=== PATIENT | female | born 1935 | race Caucasian/White ===

== ENCOUNTER 2017-08-18 15:55 | Emergency (ER) | payer OTHER ==
[~2017-08-18 15:55] MED LIST: ACET-1256 PO; ALLO300T2 PO; CPR500 PO; DILT120C9 PO; ENAL1TAB31 PO; FENO48TA9 PO; MEMA10TA PO; NRN/300 PO; SIMV10TA2 PO
[2017-08-18 16:12] VITALS: TEMP 36.6; Ht 160 cm
--- NOTE | 2017-08-18 16:54 | DIAGNOSTIC IMAGING REPORT ---
HEAD WITHOUT CONTRAST (CT) CT DOSE: 601.98 mGy.cm HISTORY: Trauma. Mental status change. fall TECHNIQUE: Multiaxial CT images of the head were performed without the use of intravenous contrast. A dose lowering technique was utilized adhering to the principles of ALARA. Comparison: 03/05/2016 Findings: The paranasal sinuses and mastoid air cells are clear. The calvarium and skull base are intact. The ventricles and sulci are within normal limits. There is no mass, hematoma, midline shift, or acute infarct. Impression: No acute intracranial abnormality. The above report was generated using voice recognition software. It may contain grammatical, syntax or spelling errors. Electronically signed by: Canelo Laura M.D. 08/18/2017 4:53 PM Dictated Date/Time: 08/18/2017 4:52 PM
--- NOTE | 2017-08-18 18:31 | EMERGENCY ROOM VISIT NOTE ---
History Report prepared by Kristy: Cyrus Dillon Under the Supervision of: Dr. Reginald Yee D.O. First contact with patient: 16:18 Chief Complaint: FALL Stated Complaint: FELL HIT HEAD ABRASIONS REALLY SORE R ARM History of Present Illness The patient is an 81 year old female who presents to the Emergency Room with concerns from her family of unusual/worsening confusion and lethargy. The patient's family note that the patient states that she "rolled out of bed while sleeping" at 0230 yesterday morning, 38 hours ago. The family note that the patient has been unusually confused since the fall. She has also been sleeping all day today per the daughter. The daughter lives with the patient and notes that she did not call for help until 0730. The patient did hit her head during the fall. Source of History: patient, family Onset: 38 hours ago Position: head Quality: other (confusion) Timing: worsening Associated Symptoms: + fatigue Review of Systems See HPI for pertinent positives & negatives. A total of 10 systems reviewed and were otherwise negative. Past Medical & Surgical Medical Problems: (1) Anemia of chronic renal failure (2) Benign hypertension (3) Cataract (4) Chronic kidney disease stage 4 (5) Chronic osteoarthritis (6) Diabetes mellitus type 2 (7) Ectopic (8) Fall (9) Fistula (10) Gout (11) HTN (hypertension) (12) Left leg pain (13) UTI (urinary tract infection) Surgical Problems: (1) History of cataract surgery (2) History of hysterectomy (3) Hx of tonsillectomy (4) Status post total knee replacement, left Family History Cancer Heart disease Hypertension Social History Smoking Status: Never Smoker Alcohol Use: none Drug Use: none Marital Status: Housing Status: lives with family Occupation Status: retired Current/Historical Medications Scheduled Allopurinol (Zyloprim), 300 MG PO DAILY Ciprofloxacin (Ciprofloxacin HCl), 500 MG PO BID Diltiazem Hcl (Diltiazem Hcl Er), 120 MG PO BID Enalapril Maleate (Vasotec), 20 MG PO BID Fenofibrate (Tricor), 48 MG PO DAILY Gabapentin (Neurontin), 300 MG PO BID Memantine Hcl (Namenda), 10 MG PO BID Simvastatin (Zocor), 10 MG PO QPM Scheduled PRN Acetaminophen (Tylenol), 1,000 MG PO Q8 PRN for Pain Allergies Coded Allergies: Morphine (Unverified Allergy, Mild, Vomiting, 03/05/16) Atorvastatin (Verified Allergy, Unknown, SICK TO STOMACH, 03/05/16) Glucosamine (Verified Allergy, Unknown, JOINTS GOT WORSE, 03/05/16) Sulfa Antibiotics (Unverified Adverse Reaction, Severe, dizzy, shaky, "mind was completely off", 03/05/16) Physical Exam Vital Signs Date Time Temp Pulse Resp B/P (MAP) Pulse Ox O2 Delivery O2 Flow Rate FiO2 08/18/17 17:47 78 18 143/79 98 Room Air 08/18/17 16:12 36.6 87 16 127/75 98 Room Air Physical Exam CONSTITUTIONAL/VITAL SIGNS: Reviewed / noted above. GENERAL: Non-toxic in appearance. INTEGUMENTARY: Warm, dry, and [place]. HEAD: There is light ecchymosis noted to the right forehead. EYES: without scleral icterus or trauma. ENT/OROPHARYNX: clear and moist. LYMPHADENOPATHY/NECK: Is supple without lymphadenopathy or meningismus. RESPIRATORY: Lungs clear and equal. CARDIOVASCULAR: Regular rate and rhythm. GI/ABDOMEN: Soft and nontender. No organomegaly or pulsatile mass. No rebound or guarding. Normal bowel sounds. EXTREMITIES: Warm and well perfused. There is an abrasion to the right medial knee. BACK: No CVA tenderness. NEUROLOGICAL: Intact without focal deficits. PSYCHIATRIC: normal affect. MUSCULOSKELETAL: Normally developed with good muscle tone. Medical Decision & Procedures ER Provider Diagnostic Interpretation: Radiology results as stated below per my review and radiologist interpretation: HEAD WITHOUT CONTRAST (CT) CT DOSE: 601.98 mGy.cm HISTORY: Trauma. Mental status change. fall TECHNIQUE: Multiaxial CT images of the head were performed without the use of intravenous contrast. A dose lowering technique was utilized adhering to the principles of ALARA. Comparison: 03/05/2016 Findings: The paranasal sinuses and mastoid air cells are clear. The calvarium and skull base are intact. The ventricles and sulci are within normal limits. There is no mass, hematoma, midline shift, or acute infarct. Impression: No acute intracranial abnormality. The above report was generated using voice recognition software. It may contain grammatical, syntax or spelling errors. Electronically signed by: Canelo Laura M.D. 08/18/2017 4:53 PM Dictated Date/Time: 08/18/2017 4:52 PM ED Course 1619: Previous medical records were reviewed. The patient was evaluated in room C1B. A complete history and physical examination was performed. Medical Decision Differentials include: Close head injury, intracranial bleed, facial trauma, cervical spine trauma, chest and thoracic trauma, abdominal and intra-abdominal trauma, spine neurologic trauma, and extremity trauma. This is an 81-year-old female who presents to the ED after a fall. The patient' s family was concerned about a head injury. Details listed above. The patient' s exam reveals some ecchymosis of the forehead and other areas of the extremities. She has a CT scan that was negative for acute disease. The patient was told the results. She was discharged Impression Primary Impression: Fall Additional Impression: Contusion of multiple sites Scribe Attestation The scribe's documentation has been prepared under my direction and personally reviewed by me in its entirety. I confirm that the note above accurately reflects all work, treatment, procedures, and medical decision making performed by me. Departure Information Referrals Summer Mckeon M.D. (PCP) Patient Instructions [facility] Additional Instructions Follow-up with your doctor for further care and evaluation in 1-2 days as needed. Return to the emergency department for worsening or new symptoms or any concerns. You have been examined and treated today on an emergency basis only. This is not a substitute for, or an effort to provide, complete comprehensive medical care. It is impossible to recognize and treat all injuries or illnesses in a single emergency department visit. It is therefore important that you follow up closely with your doctor. Call as soon as possible for an appointment. Problem Qualifiers
[2017-08-18 18:57] VITALS: BP 138/77; PULSE 77; O2SAT 99
== END 2017-08-18 18:58 | disposition home or self-care (01) ==
LOC: C.EDB 15:56 → C.EDC 18:58
DX: T14.8XXA Other injury of unspecified body region, initial encounter (principal); W06.XXXA Fall from bed, initial encounter; N18.4 Chronic kidney disease, stage 4 (severe); D63.1 Anemia in chronic kidney disease; I12.9 Hypertensive chronic kidney disease with stage 1 through stage 4 chronic kidney disease, or unspecified chronic kidney disease; Z98.49 Cataract extraction status, unspecified eye; E11.9 Type 2 diabetes mellitus without complications; M19.90 Unspecified osteoarthritis, unspecified site; M10.9 Gout, unspecified; Z87.440 Personal history of urinary (tract) infections; Z90.710 Acquired absence of both cervix and uterus; Z79.899 Other long term (current) drug therapy; Z96.652 Presence of left artificial knee joint; Z80.9 Family history of malignant neoplasm, unspecified; Z82.49 Family history of ischemic heart disease and other diseases of the circulatory system

== ENCOUNTER 2023-02-22 11:16 | Inpatient (IN) ==
--- NOTE | 2023-02-22 11:46 | Emergency Department Note ---
Impression & Plan Acute confusion, Fall, Fatigue, Acute UTI (urinary tract infection), LAURI (acute kidney injury), Anemia ED Provider Note ED Provider Note NAME: GIN CHU AGE:87 SEX: Female : 1935 ARRIVES VIA: EMS INFORMANT: Patient, family ED PROVIDER(s): Bhakti Shrestha DO CHIEF COMPLAINT: Fall, confusion HPI: This is an 87-year-old female presents emergency department via EMS after being unable to walk today following a fall last night and subsequent right foot injury. Patient lives with family who helps to care for her. Patient does have a history of Alzheimer's disease and family helps to provide history. Family states over the last 2 to 3 days she has had increased fatigue and confusion of unknown reason. They deny any recent change in medications or illness. Family states that last night she slid off the end of the bed onto the floor and landed on her butt but was able to be helped back up and seemed well and uninjured. Then late last night she fell again between her bed and the door coming back from the restroom. Family member states they heard her fall but did not witness it. They called 911 for assistance getting the patient back up and she seemed well and did not wish to go to the hospital so she stayed home. Family member states that this morning she could not get out of bed due to pain in the right foot and she now had obvious swelling and bruising there. They were concern for injury and so called EMS to bring her in for additional evaluation. Patient is not on any anticoagulation or antiplatelet medication. PAST MEDICAL HISTORY:See Below PAST SURGICAL HISTORY:See Below FAMILY HISTORY:See Below SOCIAL HISTORY:See Below HOME MEDICATIONS:See Below ALLERGIES:See Below VITALS:See Below PHYSICAL EXAMINATION: GENERAL: alert, well appearing, well nourished, no distress, non-toxic EYE EXAM: normal conjunctiva, PERRL and EOM's grossly intact OROPHARYNX: no exudate, no erythema, lips, buccal mucosa, and tongue normal and mucous membranes are moist NECK: supple, no nuchal rigidity, no adenopathy, non-tender LUNGS: Clear to auscultation. Normal chest wall mechanics, no w/r/r HEART: no murmurs, S1 normal and S2 normal ABDOMEN: abdomen soft, non-tender, normo-active bowel sounds, no masses, no rebound or guarding. BACK: Back is symmetrical on inspection and there is no deformity, no midline tenderness, no CVA tenderness. SKIN: no rashes, petechiae, orbruising UPPER EXTREMITIES: upper extremities are grossly normal. FROM, nml pulses b/l. LOWER EXTREMITIES: No pitting edema. FROM, nml pulses b/l. Obvious edema and evolving ecchymosis noted to the dorsal aspect of the right foot, pain with palpation along the right inferior tibia anteriorly, no obvious deformity, small area evolving ecchymosis noted just superior to the patella at the right knee, no joint effusion, chronic appearing skin changes noted to the right pretibial region additionally NEURO EXAM: Pleasantly confused, cranial nerves II-XII grossly intact, normal speech, no facial droop,nogross weakness of arms, no gross weakness of legs. Gross sensation intact. No ataxia. Vital Signs: reviewed and remarkable Differential Diagnosis: cva, ich, lauri, uti, electrolyte abnormality, dysrhythmia, syncope, pna, fracture, contusion, hypoglycemia, as well as others were considered MEDICAL DECISION MAKING: This is an 87 yo female brought in by EMS as patient unable to ambulate following a fall last night. Patient with increased fatigue and confusion in recent days. She was afebrile and VS stable. Labs drawn and sent, IV established, EKG and CXR performed and interpreted at bedside, and patient placed on telemetry. EKG showed new a.fib which patient has no prior hx of. She was cautiously hydrated as she appeared clinically dehydrated. Rate controlled without additional medication. Given concern for confusion and inability to walk, case was discussed with the hospitalist team for additional evaluation and mgmt. UA pending at that time. UA eventually revealed infection, IV rocephin added. Consultation(s): 1415: Discussed with Melida Pace hospitalist team, for additional evaluation and management ER Treatment Provided: See below Diagnostics Interpreted By Me: -ECG: A-fib at 99, leftward axis, normal QRS and prolonged QTc, nonspecific ST/T wave changes -Cardiac Monitoring: An order was placed for continuous cardiac monitoring. The monitor shows a rate of 77 with a.fib rhythm. -Laboratory studies: As stated above and show below. -Imaging studies: X-ray Chest: A single view study of the chest was reviewed and was negative for cardiomegaly, focal infiltrate, effusion, pulmonary edema, or wide mediastinum. xr tib/fib: no obvious fx/dislocation xr foot: no fx/dislocation Triage Nursing Note Reviewed Prior/Outside Records Reviewed - prior [facility] office visit reviewed Past Med/Surg History Medical History Depression RLS (restless legs syndrome) Alzheimer's dementia Dyslipidemia CKD (chronic kidney disease), stage III Diabetes mellitus type 2, diet-controlled HTN (hypertension) Surgical History History of hysterectomy (Unknown) History of cataract surgery Status post total knee replacement, left Hx of tonsillectomy Family History Other Heart disease Stroke Social History Smoking Status: Never smoker Do You Dip or Chew Tobacco: No; Hx Alcohol Use: No Hx Substance Use: No Preferred Language: Haitian Communication Ability: Impaired Communication Ability Comment: pt confused Beliefs That Will Affect Care: None Current Living Situation: Family Current Living Situation Comment: lives with daughter Other Information That Helps Us Care for You: No Feels Safe at Home: Yes Safety Concerns: Feels Safe At This Time Assistive Devices: Denture - Upper, Glasses, Hearing Aid - Bilateral and Walker Assistive Devices Comment: glasses and hearing aids not here Allergies Allergies Allergy/AdvReac Type Severity Reaction Status Date / Time morphine Allergy Mild Vomiting Unverified 03/05/16 15:06 atorvastatin Allergy Unknown SICK TO Verified 03/05/16 15:06 STOMACH glucosamine Allergy Unknown JOINTS GOT Verified 03/05/16 15:06 WORSE Sulfa (Sulfonamide AdvReac Severe dizzy, Unverified 03/05/16 15:06 Antibiotics) shaky, "mind was completely off" Home Meds Home Medications Medication Instructions Recorded Confirmed allopurinol 100 mg tablet 100 mg PO QAM #0 tabs 07/05/12 02/22/23 acetaminophen 500 mg tablet 500 mg PO Q6H PRN PAIN/FEVER 02/22/23 02/22/23 cholecalciferol (vitamin D3) 25 25 mcg PO QAM 02/22/23 02/22/23 mcg (1,000 unit) chewable tablet (Vitamin D3) cyanocobalamin (vitamin B-12) 1,000 mcg PO QAM 02/22/23 02/22/23 1,000 mcg tablet (Vitamin B-12) diltiazem HCl 120 mg capsule,24 120 mg PO BID 02/22/23 02/22/23 hr,extended release enalapril maleate 20 mg tablet 20 mg PO BID 02/22/23 02/22/23 gabapentin 300 mg capsule 300 mg PO BID 02/22/23 02/22/23 memantine 10 mg tablet 10 mg PO BID 02/22/23 02/22/23 sertraline 25 mg tablet 25 mg PO HS 02/22/23 02/22/23 simvastatin 10 mg tablet 10 mg PO HS 02/22/23 02/22/23 Results & Data (ED) Vital Signs Vital Signs - 24 hr 02/22/23 11:33 02/22/23 11:43 02/22/23 13:42 Temperature 36.8 C Temperature Source Oral Pulse Rate 120 H 91 H Pulse Rate [Right Finger] 89 Respiratory Rate 22 22 Respiratory Effort / Characteristics Spontaneous Non-Labored Spontaneous Respiratory Depth Normal Normal Blood Pressure 173/110 H Blood Pressure [Right Arm] 139/75 Blood Pressure Mean 131 Blood Pressure Mean [Right Arm] 96 Pulse Oximetry 92 94 Oxygen Delivery Method Room Air Room Air Sepsis Recent Fever Within 48 Hours No Sepsis New/Unexplained Change in Mental Status N/A Sepsis Action Taken by Nursing No Action Required Laboratory Data 02/22/23 11:37 02/22/23 11:37 Lab Results 02/22/23 02/22/23 Range/Units 11:37 11:57 WBC 8.79 (4.8-10.8) K/ul RBC 3.44 L (4.20-5.40) M/uL Hgb 10.9 L (12.0-16.0) g/dl Hct 33.9 L (37.0-47.0) % MCV 98.5 (80.0-100.0) fL MCH 31.7 (25.0-34.0) pg MCHC 32.2 (32.0-36.0) g/dL RDW Std Deviation 51.5 H (36.4-46.3) fL RDW Coeff of Kylee 14.2 (11.5-14.5) % Plt Count 287 (130-400) K/uL MPV 9.7 (9.4-12.4) fL Immature Gran % (Auto) 0.5 % Neut % (Auto) 66.6 % Lymph % (Auto) 20.5 % Hyde % (Auto) 9.7 % Eos % (Auto) 1.8 % Baso % (Auto) 0.9 % Neut # (Auto) 5.86 (1.40-6.50) K/uL Lymph # (Auto) 1.80 (1.20-3.40) K/uL Hyde # (Auto) 0.85 H (0.11-0.59) K/uL Eos # (Auto) 0.16 (0.00-0.50) K/uL Baso # (Auto) 0.08 (0.00-0.20) K/uL Immature Gran # (Auto) 0.04 (0.01-0.20) K/uL PT 11.4 (9.0-12.0) Seconds INR 1.0 (0.9-1.1) Sodium 144 (136-145) mmol/L Potassium 3.9 (3.5-5.1) mmol/L Chloride 111 H (98-107) mmol/L Carbon Dioxide 25 (21-32) mmol/L Anion Gap 8 (3-11) BUN 36 H (6-23) mg/dl Creatinine 1.39 H (0.6-1.2) mg/dl Est Cr Clr Drug Dosing 32.1 ml/min Est GFR ( Amer) 39.7 ml/min Est GFR (Non-Af Amer) 34.2 ml/min BUN/Creatinine Ratio 25.9 H (10-20) Glucose 147 H (70-99(Fasting)) mg/dl Calcium 9.2 (8.6-10.3) mg/dl Magnesium 2.1 (1.7-2.4) mg/dl Total Bilirubin 0.6 (0.2-1.0) mg/dl AST 30 (13-39) U/L ALT 15 (7-52) U/L Alkaline Phosphatase 84 (34-104) U/L Total Creatine Kinase 297 H (26-192) U/L Troponin I High Sens 55.8 H* (0-14) pg/ml Total Protein 6.8 (6.0-8.3) gm/dl Albumin 3.8 (3.4-5.0) gm/dl Globulin 3.0 (2.5-4.0) gm/dl Albumin/Globulin Ratio 1.3 (0.9-2) Lipase 30 (11-82) U/L TSH 1.284 (0.300-4.500) uIu/ml Adenovirus (PCR) Not Detected (NotDetected) B. pertussis DNA (PCR) Not Detected (NotDetected) B.parapertussis DNA PCR Not Detected (NotDetected) C. pneumoniae DNA (PCR) Not Detected (NotDetected) Coronavirus OC43 (PCR) Not Detected (NotDetected) Coronavirus HKU1 (PCR) Not Detected (NotDetected) Coronavirus 229E (PCR) Not Detected (NotDetected) SARS-CoV-2 (PCR) Not Detected (NotDetected) Coronavirus NL63 (PCR) Not Detected (NotDetected) Human Metapneumovir PCR Not Detected (NotDetected) Influenza Type A (PCR) Not Detected (NotDetected) Influenza Type B (PCR) Not Detected (NotDetected) M. pneumoniae (PCR) Not Detected (NotDetected) Parainfluenza 1 (PCR) Not Detected (NotDetected) Parainfluenza 2 (PCR) Not Detected (NotDetected) Parainfluenza 3 (PCR) Not Detected (NotDetected) Parainfluenza 4 (PCR) Not Detected (NotDetected) RSV (PCR) Not Detected (NotDetected) Entero/Rhino (PCR) Not Detected (NotDetected) Administered Medications Diltiazem HCl (Diltiazem Hcl 120 Mg Capcr) 120 mg PO BID [facility] Stop: 03/24/23 20:59 Last Admin: 02/22/23 20:42 Dose: 120 mg Documented By: CR Enalapril Maleate (Enalapril Maleate 10 Mg Tab) 20 mg PO BID [facility] Stop: 03/24/23 20:59 Last Admin: 02/22/23 20:43 Dose: 20 mg Documented By: CR Gabapentin (Gabapentin 300 Mg Cap) 300 mg PO BID [facility] Stop: 03/24/23 20:59 Last Admin: 02/22/23 20:43 Dose: 300 mg Documented By: CR Sodium Chloride (Nss) 1,000 mls @ 125 mls/hr IV .Q8H [facility]ON[facility] Stop: 03/24/23 11:44 Last Admin: 02/22/23 19:00 Dose: 125 mls/hr Documented By: Infusion: 02/22/23 19:00 Dose: Infused Documented By: Admin: 02/22/23 12:44 Dose: 125 mls/hr Documented By: LYLA Heparin Sodium/Dextrose (Heparin Sodium/Dextrose) 25,000 units in 500 mls @ 17 mls/hr IV .Q24H DEVONTE; Protocol Stop: 03/24/23 15:44 Last Titration: 02/22/23 19:15 Dose: 850 units/hr, 17 mls/hr Documented By: OMAR Co-signed By: KEATON Admin: 02/22/23 15:47 Dose: 850 units/hr, 17 mls/hr Documented By: LYLA Co-signed By: REAGAN Memantine (Memantine Hcl 10 Mg Tab) 10 mg PO BID [facility] Stop: 03/24/23 20:59 Last Admin: 02/22/23 20:43 Dose: 10 mg Documented By: OMAR Metoprolol Tartrate (Metoprolol Tartrate 25 Mg Tab) 12.5 mg PO BID [facility] Stop: 03/24/23 20:59 Last Admin: 02/22/23 20:43 Dose: 12.5 mg Documented By: OMAR Sertraline HCl (Sertraline Hcl 50 Mg Tablet) 25 mg PO [facility] Stop: 03/24/23 20:59 Last Admin: 02/22/23 20:43 Dose: 25 mg Documented By: OMAR Simvastatin (Simvastatin 10 Mg Tab) 10 mg PO [facility] Stop: 03/24/23 20:59 Last Admin: 02/22/23 20:43 Dose: 10 mg Documented By: OMAR Discontinued Medications Furosemide (Furosemide Inj 20 Mg/2 Ml Vial) 20 mg IV ONE ONE Stop: 02/22/23 16:43 Last Admin: 02/22/23 18:44 Dose: 20 mg Documented By: ROD Ceftriaxone Sodium (Rocephin) 2,000 mg in 50 mls @ 100 mls/hr IV NOW STA Stop: 02/22/23 16:50 Last Infusion: 02/22/23 17:13 Dose: Infused Documented By: Admin: 02/22/23 16:42 Dose: 100 mls/hr Documented By: QGV Metoprolol Tartrate (Metoprolol Tartrate 25 Mg Tab) 12.5 mg PO NOW STA Stop: 02/22/23 15:01 Last Admin: 02/22/23 15:47 Dose: 12.5 mg Documented By: JKB Imaging Data Radiologist's Impression: Cervical Spine CT 02/22/23 11:38 CT cervical spine wo con CLINICAL HISTORY: fall TECHNIQUE: Multidetector row helical CT of the cervical spine was performed without administration of intravenous contrast. Coronal and sagittal reformations were obtained. Automated dose lowering techniques and/or adjustment according to patient size were utilized for this exam. Comparison: None available at the time of this dictation. FINDINGS: No acute fractures or subluxations are identified. Degenerative changes are seen in the visualized spine. The alignment is normal. Moderate bilateral pleural effusions are seen. There is a groundglass opacity in the left upper lobe. There are a few scattered nodules measuring up to 3 mm. IMPRESSION: 1. Degenerative changes without evidence of acute bony injury. 2. Moderate bilateral pleural effusions. ACT 112: Negative or not required by law. Electronically signed by: Cristo Turner M.D. 02/22/2023 1:29 PM Chest X-Ray 02/22/23 11:38 XR chest 1V not portable CLINICAL HISTORY: sob TECHNIQUE: Single frontal radiograph of the chest was obtained. Comparison: Comparison is made to chest radiograph 03/28/2014 FINDINGS: No lines and tubes are seen. Calcified aortic knob is seen. The lungs are clear. No evidence of pleural effusion or pneumothorax. IMPRESSION: No acute chest disease. ACT 112: Negative or not required by law. Electronically signed by: Cristo Turner M.D. 02/22/2023 1:[address] 02/22/23 11:38 CT head/brain wo con CLINICAL HISTORY: fall Technique: Contiguous axial CT images of the head were acquired from the base of the skull to the vertex without intravenous contrast administration. Images were viewed in brain, subdural and bone windows. Automated dose lowering techniques and/or adjustment according to patient size were utilized for this exam. Comparison: Comparison is made to CT head 08/18/2017 Findings: Areas of decreased attenuation are present in the periventricular and subcortical white matter bilaterally consistent with small vessel ischemic disease. Generalized cerebral atrophy with commensurate enlargement of the ventricles, sulci, and cisterns is also present. There is no acute intracranial hemorrhage or evidence of acute territorial infarction. No shift of the midline structures, mass effect, or extra-axial abnormalities are shown. Atherosclerotic calcifications are present in the intracranial segments of the internal carotid arteries. Imaged portions of the paranasal sinuses and mastoid air cells are clear. The orbits appear normal. There are no acute fractures of the calvaria or scalp swelling. Impression: No acute intracranial hemorrhage, no evidence of acute territorial infarction or other acute intracranial disease process. ACT 112: Negative or not required by law. Electronically signed by: Cristo Turner M.D. 02/22/2023 1:22 PM Foot X-Ray 02/22/23 11:39 XR foot RT min 3V routine CLINICAL HISTORY: trauma TECHNIQUE: 3 views of the right foot were obtained. Comparison: None available at the time of this dictation. FINDINGS: No fractures are present. Degenerative changes are seen. Bones are demineralized. Vascular calcifications are noted. IMPRESSION: Degenerative changes without evidence of acute fracture. ACT 112: Negative or not required by law. Electronically signed by: Cristo Turner M.D. 02/22/2023 1:26 PM Tibia/Fibula X-Ray 02/22/23 11:39 XR tibia fibula RT 2V CLINICAL HISTORY: trauma TECHNIQUE: 2 radiographic views of the right leg were obtained. Comparison: None available at the time of this dictation. FINDINGS: There is no evidence of an acute fracture. Extensive joint space narrowing with osteophyte formation is seen at the knee. Vascular calcifications are seen. IMPRESSION: No evidence of acute osseous injury. ACT 112: Negative or not required by law. Electronically signed by: Cristo Turner M.D. 02/22/2023 1:26 PM Discharge Plan Visit Data Chief Complaint: Fall ED Provider: Bhakti Shrestha Discharge Problem: Acute confusion, Fall, Fatigue, Acute UTI (urinary tract infection), LAURI (acute kidney injury), Anemia Patient Disposition: Admitted As Inpatient Discharge Instructions Interventions: ED Discharge Assessment Last Done: 02/22/23 14:50
[2023-02-22 12:14] LABS: Basophils # (auto) 0.08 K/uL (0.00-0.20); Basophils % (auto) 0.9 %; Eosinophils # (auto) 0.16 K/uL (0.00-0.50); Eosinophils % (auto) 1.8 %; Hematocrit (blood only) 33.9 % (37.0-47.0); Hemoglobin 10.9 g/dl (12.0-16.0); Immature Granulocytes # (auto) 0.04 K/uL (0.01-0.20); Immature Granulocytes % (auto) 0.5 %; Lymphocytes % (auto) 20.5 %; Mean Corpuscular Hemoglobin 31.7 pg (25.0-34.0); Mean Corpuscular Hgb Conc 32.2 g/dL (32.0-36.0); Mean Corpuscular Volume 98.5 fL (80.0-100.0); Mean Platelet Volume 9.7 fL (9.4-12.4); Monocytes # (auto) 0.85 K/uL (0.11-0.59); Monocytes % (auto) 9.7 %; Neutrophils # (auto) 5.86 K/uL (1.40-6.50); Neutrophils % (auto) 66.6 %; Platelet Count 287 K/uL (130-400); RDW Coefficient of Variation 14.2 % (11.5-14.5); RDW Standard Deviation 51.5 fL (36.4-46.3); Red Blood Count 3.44 M/uL (4.20-5.40); White Blood Count 8.79 K/ul (4.8-10.8)
[2023-02-22 12:33] LABS: Albumin Globulin Ratio 1.3 (0.9-2); Albumin Level 3.8 gm/dl (3.4-5.0); BUN Creatinine Ratio 25.9 (10-20); Bilirubin,Total 0.6 mg/dl (0.2-1.0); Calcium 9.2 mg/dl (8.6-10.3); Creatinine Clr Calc Pharmacy 32.1 ml/min; Est GFR (African American) 39.7 ml/min; Est GFR (Non-African American) 34.2 ml/min; Magnesium 2.1 mg/dl (1.7-2.4); Potassium 3.9 mmol/L (3.5-5.1); Total Protein 6.8 gm/dl (6.0-8.3)
[2023-02-22 12:35] LABS: Prothrombin Time 11.4 Seconds (9.0-12.0)
[2023-02-22 12:43] LABS: Troponin I High Sensitivity 55.8 pg/ml (0-14)
[2023-02-22] MEDS: SODIUM CHLORIDE 0.9% 1,000 ML IV SCH ×2 (12:44→19:00)
[2023-02-22 12:49] LABS: Thyroid Stimulating Hormone 1.284 uIu/ml (0.300-4.500)
--- NOTE | 2023-02-22 13:23 | CT Scan Report ---
CT head/brain wo con CLINICAL HISTORY: fall Technique: Contiguous axial CT images of the head were acquired from the base of the skull to the montez chasity without intravenous contrast administration. Images were viewed in brain, subdural and bone [facility]. Automated dose lowering techniques and/or adjustment according to patient size were utilized for this exam. Comparison: Comparison is made to CT head 08/18/2017 Findings: Areas of decreased attenuation are present in the periventricular and subcortical white matter bilate rally consistent with small vessel ischemic disease. Generalized cerebral atrophy with commensurate e nlargement of the ventricles, sulci, and cisterns is also present. There is no acute intracranial hem orrhage or evidence of acute territorial infarction. No shift of the midline structures, mass effect, or extra-axial abnormalities are shown. Atherosclerotic calcifications are present in the intracran ial segments of the internal carotid arteries. Imaged portions of the paranasal sinuses and mastoid air cells are clear. The orbits appear normal. There are no acute fractures of the calvaria or scalp swelling. Impression: No acute intracranial hemorrhage, no evidence of acute territorial infarction or other acute intracra nial disease process. ACT 112: Negative or not required by law. Electronically signed by: Cristo Turner M.D. 02/22/2023 1:22 PM
--- NOTE | 2023-02-22 13:24 | XRay Report ---
XR chest 1V not portable CLINICAL HISTORY: sob TECHNIQUE: Single frontal radiograph of the chest was obtained. Comparison: Comparison is made to chest radiograph 03/28/2014 FINDINGS: No lines and tubes are seen. Calcified aortic knob is seen. The lungs are clear. No evidence of pleur al effusion or pneumothorax. IMPRESSION: No acute chest disease. ACT 112: Negative or not required by law. Electronically signed by: Cristo Turner M.D. 02/22/2023 1:23 PM
--- NOTE | 2023-02-22 13:28 | XRay Report ---
XR tibia fibula RT 2V CLINICAL HISTORY: trauma TECHNIQUE: 2 radiographic views of the right leg were obtained. Comparison: None available at the time of this dictation. FINDINGS: There is no evidence of an acute fracture. Extensive joint space narrowing with osteophyte formation is seen at the knee. Vascular calcifications are seen. IMPRESSION: No evidence of acute osseous injury. ACT 112: Negative or not required by law. Electronically signed by: Cristo Turner M.D. 02/22/2023 1:26 PM
--- NOTE | 2023-02-22 13:28 | XRay Report ---
XR foot RT min 3V routine CLINICAL HISTORY: trauma TECHNIQUE: 3 views of the right foot were obtained. Comparison: None available at the time of this dictation. FINDINGS: No fractures are present. Degenerative changes are seen. Bones are demineralized. Vascular calcificat ions are noted. IMPRESSION: Degenerative changes without evidence of acute fracture. ACT 112: Negative or not required by law. Electronically signed by: Cristo Turner M.D. 02/22/2023 1:26 PM
--- NOTE | 2023-02-22 13:31 | CT Scan Report ---
CT cervical spine wo con CLINICAL HISTORY: fall TECHNIQUE: Multidetector row helical CT of the cervical spine was performed without administration of intravenous contrast. Coronal and sagittal reformations were obtained. Automated dose lowering techn iques and/or adjustment according to patient size were utilized for this exam. Comparison: None available at the time of this dictation. FINDINGS: No acute fractures or subluxations are identified. Degenerative changes are seen in the visualized sp ine. The alignment is normal. Moderate bilateral pleural effusions are seen. There is a groundglass o pacity in the left upper lobe. There are a few scattered nodules measuring up to 3 mm. IMPRESSION: 1. Degenerative changes without evidence of acute bony injury. 2. Moderate bilateral pleural effusions. ACT 112: Negative or not required by law. Electronically signed by: Cristo Turner M.D. 02/22/2023 1:29 PM
[2023-02-22 13:51] LABS: Adenovirus PCR Not Detected (NotDetected); Bordetella parapertussis PCR Not Detected (NotDetected); Bordetella pertussis PCR Not Detected (NotDetected); Chlamydia pneumoniae PCR Not Detected (NotDetected); Coronavirus 229E PCR Not Detected (NotDetected); Coronavirus CoV-2 (COVID19)PCR Not Detected (NotDetected); Coronavirus HKU1 PCR Not Detected (NotDetected); Coronavirus NL63 PCR Not Detected (NotDetected); Coronavirus OC43PCR Not Detected (NotDetected); Human Metapneumovirus PCR Not Detected (NotDetected); Influenza A PCR Not Detected (NotDetected); Influenza B PCR Not Detected (NotDetected); Mycoplasma pneumoniae PCR Not Detected (NotDetected); Parainfluenza Virus 1 PCR Not Detected (NotDetected); Parainfluenza Virus 2 PCR Not Detected (NotDetected); Parainfluenza Virus 3 PCR Not Detected (NotDetected); Parainfluenza Virus 4 PCR Not Detected (NotDetected); Respiratory Syncytial VirusPCR Not Detected (NotDetected); Rhinovirus/Enterovirus PCR Not Detected (NotDetected)
--- NOTE | 2023-02-22 14:15 | History & Physical Report ---
Date of Service February 22, 2023 Assessment & Plan (1) Fall: (2) Generalized weakness: (3) UTI (urinary tract infection): (4) New onset atrial fibrillation: (5) Elevated troponin: (6) HTN (hypertension): (7) Depression: (8) RLS (restless legs syndrome): (9) Alzheimer's dementia: (10) CKD (chronic kidney disease), stage III: (11) Diabetes mellitus type 2, diet-controlled: (12) Dyslipidemia: Plan This is a 87-year-old female with PMH of type 2 diabetes, dyslipidemia, hypertension, stage III CKD, RLS, Alzheimer's disease, depression and other medical problems listed below who presents after fall at home last evening and pain in right leg and was found to have a UTI and new onset atrial fibrillation. UTI Generalized weakness UA grossly abnormal, started on empiric Rocephin, follow urine culture Fall R foot pain Denies head trauma, 2/[address] head, CT cervical spine, R foot XR, Tib/fib XR without acute abnormality Ice, PT/OT, fall precautions, PRN Tylenol New onset atrial fibrillation EKG with A fib with HR 99 on admission, no h/o a fib in outpatient records Starting Lopressor 12.5mg BID Clinically appears overloaded - starting 20mg IV Lasix daily, monitor diuresis IV heparin while admitted given new diagnosis, routine cardiology consult, 2D echo, repeat EKG in AM Consideration for technician terminal and repeater a/c given fall risk as above Troponin elevation HS trop elevated at 55.8 likely 2/2 a fib. No CP. Trend troponin HTN Elevated on admission, has improved to 144/91. Continue home diltiazem, enalapril Depression Continue sertraline CKD III At baseline with Cr ~1.3. Monitor with daily BMP DM II- diet controlled. Repeat BSG in AM given age and add loose SSI if indicated given age Alzheimer's disease A&O to person and place at baseline, lives with daughter. Cont Memantine HLD Continue statin DVT Ppx: IV heparin Code status: DNR/DNI per discussion with patient/daughter at bedside PCP: Linda Dispo: Admitted to PCU Patient seen in collaboration with Dr. Mohan. Please see addendum. History of Present Illness Chief Complaint: Worsening weakness, fall at home Primary Care Provider: Summer Mckeon MD This is a 87-year-old female with PMH of type 2 diabetes, dyslipidemia, hypertension, stage III CKD, RLS, Alzheimer's disease, depression and other medical problems listed below who presents after fall at home last evening and pain in right leg. History primarily obtained from family at bedside as patient has dementia. Family has noted increased weakness over the past few days and she has been sleeping significantly more than previous. At baseline able to complete ADLs and help with dishes but over the past few days patient much more lethargic. Reportedly yesterday morning patient slid off her bed and was helped off of the ground by family and spent the rest of the day sleeping on the cough with family around in mobile home. Fell ambulating out of bathroom and was found sitting with her R leg tucked under her. Was helped back to bed by family. When she woke up today, she could not bear weight on RLE and was brought in for further evaluation. No recent issues with appetite. No dysuria or more frequent urination. No recent known illness. + increased SOB and swelling in lower ext remities. Denies any current pain. No F/C, lightheadedness, CP, palpitations, N/V, abdominal pain, dysuria or changes to bowel habits. Ambulates with a walker at baseline and lives in a mobile home with her daughter. Allergies Allergy/AdvReac Type Severity Reaction Status Date / Time morphine Allergy Mild Vomiting Unverified 03/05/16 15:06 atorvastatin Allergy Unknown SICK TO Verified 03/05/16 15:06 STOMACH glucosamine Allergy Unknown JOINTS GOT Verified 03/05/16 15:06 WORSE Sulfa (Sulfonamide AdvReac Severe dizzy, Unverified 03/05/16 15:06 Antibiotics) shaky, "mind was completely off" Home Medications Medication Instructions Recorded Confirmed Type allopurinol 100 mg tablet 100 mg PO QAM #0 tabs 07/05/12 02/22/23 History acetaminophen 500 mg tablet 500 mg PO Q6H PRN PAIN/FEVER 02/22/23 02/22/23 History cholecalciferol (vitamin D3) 25 25 mcg PO QAM 02/22/23 02/22/23 History mcg (1,000 unit) chewable tablet (Vitamin D3) cyanocobalamin (vitamin B-12) 1,000 mcg PO QAM 02/22/23 02/22/23 History 1,000 mcg tablet (Vitamin B-12) diltiazem HCl 120 mg capsule,24 120 mg PO BID 02/22/23 02/22/23 History hr,extended release enalapril maleate 20 mg tablet 20 mg PO BID 02/22/23 02/22/23 History gabapentin 300 mg capsule 300 mg PO BID 02/22/23 02/22/23 History memantine 10 mg tablet 10 mg PO BID 02/22/23 02/22/23 History sertraline 25 mg tablet 25 mg PO HS 02/22/23 02/22/23 History simvastatin 10 mg tablet 10 mg PO HS 02/22/23 02/22/23 History Past Med/Surg History Medical History Depression RLS (restless legs syndrome) Alzheimer's dementia Dyslipidemia CKD (chronic kidney disease), stage III Diabetes mellitus type 2, diet-controlled HTN (hypertension) Surgical History History of hysterectomy (Unknown) History of cataract surgery Status post total knee replacement, left Hx of tonsillectomy Family History Other Heart disease Stroke Social History Smoking Status: Never smoker Hx Alcohol Use: No Hx Substance Use: No Preferred Language: Citizen Of [place] Current Living Situation: Family Feels Safe at Home: Yes Review of Systems Review of Systems: At least ten systems reviewed and negative except as noted in the HPI. Physical Exam Physical Exam: Please see Dr. Mohan's addendum for physical exam. Results & Data Results & Data Vital Signs (Past 12 Hours) Vital Signs Temp Pulse Pulse Resp BP BP Pulse Ox 02/22/23 13:42 89 22 139/75 94 02/22/23 11:43 91 H 02/22/23 11:33 36.8 C 120 H 22 173/110 H 92 O2 Del Method 02/22/23 13:42 Room Air 02/22/23 11:43 02/22/23 11:33 Room Air Laboratory Results Short CBC 02/22/23 Range/Units 11:37 WBC 8.79 (4.8-10.8) K/ul Hgb 10.9 L (12.0-16.0) g/dl Hct 33.9 L (37.0-47.0) % Plt Count 287 (130-400) K/uL BMP 02/22/23 11:37 Sodium 144 Potassium 3.9 Chloride 111 H Carbon Dioxide 25 BUN 36 H Creatinine 1.39 H Glucose 147 H Calcium 9.2 Liver Function 02/22/23 Range/Units 11:37 Total Bilirubin 0.6 (0.2-1.0) mg/dl AST 30 (13-39) U/L ALT 15 (7-52) U/L Alkaline Phosphatase 84 (34-104) U/L Albumin 3.8 (3.4-5.0) gm/dl Diagnostic Findings Cervical Spine CT 02/22/23 11:38 CT cervical spine wo con CLINICAL HISTORY: fall TECHNIQUE: Multidetector row helical CT of the cervical spine was performed without administration of intravenous contrast. Coronal and sagittal reformations were obtained. Automated dose lowering techniques and/or adjustment according to patient size were utilized for this exam. Comparison: None available at the time of this dictation. FINDINGS: No acute fractures or subluxations are identified. Degenerative changes are seen in the visualized spine. The alignment is normal. Moderate bilateral pleural effusions are seen. There is a groundglass opacity in the left upper lobe. There are a few scattered nodules measuring up to 3 mm. IMPRESSION: 1. Degenerative changes without evidence of acute bony injury. 2. Moderate bilateral pleural effusions. ACT 112: Negative or not required by law. Electronically signed by: Cristo Turner M.D. 02/22/2023 1:29 PM Chest X-Ray 02/22/23 11:38 XR chest 1V not portable CLINICAL HISTORY: sob TECHNIQUE: Single frontal radiograph of the chest was obtained. Comparison: Comparison is made to chest radiograph 03/28/2014 FINDINGS: No lines and tubes are seen. Calcified aortic knob is seen. The lungs are clear. No evidence of pleural effusion or pneumothorax. IMPRESSION: No acute chest disease. ACT 112: Negative or not required by law. Electronically signed by: Cristo Turner M.D. 02/22/2023 1:[address] 02/22/23 11:38 CT head/brain wo con CLINICAL HISTORY: fall Technique: Contiguous axial CT images of the head were acquired from the base of the skull to the vertex without intravenous contrast administration. Images were viewed in brain, subdural and bone windows. Automated dose lowering techniques and/or adjustment according to patient size were utilized for this exam. Comparison: Comparison is made to CT head 08/18/2017 Findings: Areas of decreased attenuation are present in the periventricular and subcortical white matter bilaterally consistent with small vessel ischemic disease. Generalized cerebral atrophy with commensurate enlargement of the ventricles, sulci, and cisterns is also present. There is no acute intracranial hemorrhage or evidence of acute territorial infarction. No shift of the midline structures, mass effect, or extra-axial abnormalities are shown. Atherosclerotic calcifications are present in the intracranial segments of the internal carotid arteries. Imaged portions of the paranasal sinuses and mastoid air cells are clear. The orbits appear normal. There are no acute fractures of the calvaria or scalp swelling. Impression: No acute intracranial hemorrhage, no evidence of acute territorial infarction or other acute intracranial disease process. ACT 112: Negative or not required by law. Electronically signed by: Cristo Turner M.D. 02/22/2023 1:22 PM Foot X-Ray 02/22/23 11:39 XR foot RT min 3V routine CLINICAL HISTORY: trauma TECHNIQUE: 3 views of the right foot were obtained. Comparison: None available at the time of this dictation. FINDINGS: No fractures are present. Degenerative changes are seen. Bones are demineralized. Vascular calcifications are noted. IMPRESSION: Degenerative changes without evidence of acute fracture. ACT 112: Negative or not required by law. Electronically signed by: Cristo Turner M.D. 02/22/2023 1:26 PM Tibia/Fibula X-Ray 02/22/23 11:39 XR tibia fibula RT 2V CLINICAL HISTORY: trauma TECHNIQUE: 2 radiographic views of the right leg were obtained. Comparison: None available at the time of this dictation. FINDINGS: There is no evidence of an acute fracture. Extensive joint space narrowing with osteophyte formation is seen at the knee. Vascular calcifications are seen. IMPRESSION: No evidence of acute osseous injury. ACT 112: Negative or not required by law. Electronically signed by: Cristo Turner M.D. 02/22/2023 1:26 PM ECG Additional Comments: EKG reviewed: Atrial fibrillation at 99 bpm, Left axis deviation Supervising Physician Co-Signing Physician Notes 87-year-old lady with PMH of T2DM, HLD, HTN, stage III CKD, RLS, Alzheimer's disease, depression presented to the ED due to progressive weakness, progressive shortness of breath since last few days leading up to fall 2 times yesterday. Patient though not oriented is able to provide ROS. Patient reports getting short of breath with activity last few days, getting progressively weak that she could not do her activities of daily living without feeling tired or short of breath. Patient denies chest pain. Yesterday morning she slid off of bed in sitting position and in the evening see fell while coming back from the restroom. She was lifted up to the bed, slept well all night, in the morning she could not ambulate due to pain in her right foot and hence she was brought to the ED. Per patient's daughter who is at the bedside, she has been weak and not able to carry her ADLs in the last few days. Labs fairly normal at her baseline, renal function at her baseline. Troponin elevated at 55.8, will trend troponin. Urine analysis suggestive of UTI. Follow admitting blood and urine culture. Respiratory viral panel negative. Admitting imagings reviewed, no acute findings except noted below. Patient was found in A-fib with heart rate in 90s, which is new to the patient per patient's daughter at bedside. Echo from 12/16/2008 with EF of 55 to 60%. UTI: Rocephin, follow urine culture. A-fib, rate controlled: New, TSH normal, low-dose heparin with strict bedrest due to risk of fall due to ongoing infection and weakness. Cardiology consult. EKG in AM. Echo. Telemetry monitoring. added lopressor. Elevated troponin, likely secondary to demand ischemia secondary to A-fib. Trend troponin. CT C-spine suggestive of moderate bilateral pleural effusion, follow echo, diuresis 20 iv lasix daily, Is and Os. PT/OT On exam: GENERAL: Alert and oriented x3. NAD, on RA. HEENT: No pallor, no icterus. Pupils equal, round and reactive to light. Oral mucosa moist. NECK: No JVD, no neck masses. HEART: S1 and S2 heard. irregular rate and rhythm. HR in 90s. No murmur, no gallop. RESPIRATORY SYSTEM: Normal AP diameter. No accessory muscle use. No wheezing, occ b/l crackles. decreased bb breath sounds ABDOMEN: Soft, bowel sounds present, nontender, no distention. CENTRAL NERVOUS SYSTEM: No facial droop. Speech is clear. Obeys simple commands. Moves extremities. EXTREMITIES: 1-2 + edema, dorsal forefoot soft tissue swelling/tenderness noted. BLE chronic skin changes noted. I have seen and examined the patient and have discussed the case with the provider above. I agree with the assessment and plan as stated.
[2023-02-22] MEDS ORDERED: METOPROLOL TARTRATE 25 MG TAB PO STA (15:00)
[2023-02-22] MEDS ORDERED: ONDANSETRON INJ 2 MG/ML 2 ML VIAL IV PRN (15:06)
[2023-02-22] MEDS ORDERED: ACETAMINOPHEN 325 MG TAB PO PRN (15:06)
[2023-02-22] MEDS ORDERED: POLYETHYLENE (MIRALAX) 17 GM PACK PO PRN (15:06)
[2023-02-22] MEDS ORDERED: Heparin IV Adult Wt-Based Low-Dose *NO* Bolus Protocol IV SCH (15:09)
[2023-02-22] MEDS: HEPARIN SODIUM/DEXTROSE 25,000 UNITS/500 ML BAG IV SCH (15:47)
[2023-02-22 16:15] LABS: Appearance Urine Cloudy (Clear); Bacteria Urine Automated 4+ (Negative); Bilirubin Urine Negative (Negative); Blood Urine Negative (Negative); Cast Urine Automated 0 /lpf (0-5); Color Urine Yellow; Glucose Urine UA Negative (Negative); Ketones Urine Trace (Negative); Leukocyte Esterase Urine 2+ (Negative); Nitrite Urine Positive (Negative); Protein Urine 1+ (Negative); RBC Urine Automated 0-4 /hpf (0-4); Specific Gravity Urine 1.021 (1.000-1.030); Urobilinogen Urine Negative (Negative); WBC Urine Automated >30 /hpf (0-5)
[2023-02-22] MEDS ORDERED: cefTRIAXone SODIUM 2,000 MG/50 ML BAG IV STA (16:21)
[2023-02-22] MEDS ORDERED: FUROSEMIDE INJ 20 MG/2 ML VIAL IV ONE (16:42)
[2023-02-22] MEDS: dilTIAZem HCL 120 MG CAPCR PO SCH (20:42)
[2023-02-22] MEDS: GABAPENTIN 300 MG CAP PO SCH (20:43)
[2023-02-22] MEDS: METOPROLOL TARTRATE 25 MG TAB PO SCH (20:43)
[2023-02-22] MEDS: MEMANTINE HCL 10 MG TAB PO SCH (20:43)
[2023-02-22] MEDS: SERTRALINE HCL 50 MG TABLET PO SCH (20:43)
[2023-02-22] MEDS: ENALAPRIL MALEATE 10 MG TAB PO SCH (20:43)
[2023-02-22] MEDS: SIMVASTATIN 10 MG TAB PO SCH (20:43)
[2023-02-22 23:40] LABS: Partial Thromboplastin Ratio 1.4; Partial Thromboplastin Time 39.3 Seconds (21.0-31.0)
[2023-02-23] MEDS: SODIUM CHLORIDE 0.9% 1,000 ML IV SCH (02:00)
[2023-02-23 06:28] LABS: Hematocrit (blood only) 31.7 % (37.0-47.0); Mean Corpuscular Hemoglobin 31.3 pg (25.0-34.0); Mean Corpuscular Hgb Conc 31.5 g/dL (32.0-36.0); Mean Corpuscular Volume 99.1 fL (80.0-100.0); Mean Platelet Volume 9.7 fL (9.4-12.4); Platelet Count 257 K/uL (130-400); RDW Coefficient of Variation 14.2 % (11.5-14.5); RDW Standard Deviation 51.5 fL (36.4-46.3); White Blood Count 7.95 K/ul (4.8-10.8)
[2023-02-23 06:40] LABS: BUN Creatinine Ratio 32.3 (10-20); Calcium 8.3 mg/dl (8.6-10.3); Creatinine Clr Calc Pharmacy 46.6 ml/min; Est GFR (African American) 62.1 ml/min; Est GFR (Non-African American) 53.6 ml/min; Potassium 3.8 mmol/L (3.5-5.1)
[2023-02-23 07:00] LABS: Partial Thromboplastin Ratio 1.7
[2023-02-23 07:01] LABS: Partial Thromboplastin Time 47.3 Seconds (21.0-31.0)
[2023-02-23] MEDS: ENALAPRIL MALEATE 10 MG TAB PO SCH ×2 (08:11→20:11)
[2023-02-23] MEDS: CYANOCOBALAMIN (B-12) 500 MCG TABLET PO SCH (08:12)
[2023-02-23] MEDS: METOPROLOL TARTRATE 25 MG TAB PO SCH (08:12)
[2023-02-23] MEDS: allopurinoL 100 MG TAB PO SCH (08:12)
[2023-02-23] MEDS: CHOLECALCIFEROL 1,000 UNITS 25 MCG TAB PO SCH (08:12)
[2023-02-23] MEDS: GABAPENTIN 300 MG CAP PO SCH ×2 (08:12→20:11)
[2023-02-23] MEDS: dilTIAZem HCL 120 MG CAPCR PO SCH (08:12)
[2023-02-23] MEDS: MEMANTINE HCL 10 MG TAB PO SCH ×2 (08:12→20:11)
[2023-02-23] MEDS ORDERED: FUROSEMIDE INJ 20 MG/2 ML VIAL IV SCH (09:00)
--- NOTE | 2023-02-23 09:56 | XRay Report ---
XR chest 1V portable CLINICAL HISTORY: Hypoxia TECHNIQUE: Single frontal radiograph of the chest was obtained. Comparison: Comparison is made to chest radiograph 02/22/2023 FINDINGS: No lines and tubes are seen. Cardiomegaly is noted. The aortic arch is calcified. Prominence and ceph alization of the vasculature is seen. Right lower lung airspace opacity is noted. No evidence of pleu ral effusion or pneumothorax. IMPRESSION: 1. Cardiomegaly with questionable mild pulmonary congestion. 2. New right lower lung airspace opacity likely reflects atelectasis, less likely pneumonia or aspir ation. ACT 112: Negative or not required by law. Electronically signed by: Cristo Turner M.D. 02/23/2023 9:54 AM
[2023-02-23] MEDS: LEVALBUTEROL HCL 0.63 MG/3 ML NEB NEB PRN ×2 (10:25→22:33)
--- NOTE | 2023-02-23 12:48 | Cardiology Consultation ---
Date of Consultation February 23, 2023 Assessment & Plan (1) Generalized weakness: (2) New onset atrial fibrillation: (3) Alzheimer's dementia: (4) Fall: (5) Wheeze: Plan 87-year-old female with late onset Alzheimer's dementia and medical issues as listed above presented with symptoms of weakness fatigue and falls multiple contusions. On presentation found to be in atrial fibrillation, newly observed. Metoprolol tartrate added to medical regimen. Rates are controlled. Patient anticoagulated with heparin though appears to be poor candidate for long-term anticoagulation Suspect multifactorial concerns including urinary tract infection This morning marked wheezing after fluid resuscitation Recommendations. Discontinue diltiazem. Change metoprolol to tartrate to metoprolol succinate 12.5 g twice per IV furosemide given this morning we will follow I's and O's closely suspect current wheezing complaints are secondary to volume overload. Low threshold for investigation for thromboembolic phenomena We will follow as clinical course progresses. Patient appears high risk for long-term anticoagulation unless home /social settings change History of Present Illness Reason for Consultation: Atrial fibrillation Requesting Physician: Dr. Tinajero Attending Physician: Patel Tinajero MD History of Present Illness Patient is a 87-year-old female with constellation of medical issues which include 1. Late onset Alzheimer's disease 2. Type 2 diabetes mellitus 3. Hypertension 4. Dyslipidemia 5. Hypertensive kidney disease with stage IIIb renal insufficiency 6. Left bundle branch block on EKG July 2022 Patient presents this admission with records reflecting decreased exercise tolerance malaise and fatigue times several days. Suffered 2 mechanical falls and sought ER evaluation per patient family prompting. Patient unable to confirm history due to underlying dementia. Currently denies any acute complaints other than cold sore. No fevers or chills. No orthopnea. On ER presentation patient found to be in atrial fibrillation with very mildly elevated ventricular response rate. Anticoagulation with IV heparin initiated Urine consistent with UTI now growing gram-negative bacilli. Blood cultures not performed\\ CTA of chest last performed July 2022 without evidence of pulmonary embolus for symptoms of fatigue/weakness positive D-dimer Patient referred for evaluation Acutely dyspneic this morning while eating breakfast and oxygen administered scattered wheezing observed by staff I's and O's 3+ liters positive No productive cough Telemetry atrial fibrillation without tachycardia or bradycardia arrhythmias no pauses Allergies Allergy/AdvReac Type Severity Reaction Status Date / Time morphine Allergy Mild Vomiting Unverified 03/05/16 15:06 atorvastatin Allergy Unknown SICK TO Verified 03/05/16 15:06 STOMACH glucosamine Allergy Unknown JOINTS GOT Verified 03/05/16 15:06 WORSE Sulfa (Sulfonamide AdvReac Severe dizzy, Unverified 03/05/16 15:06 Antibiotics) shaky, "mind was completely off" Home Medications Medication Instructions Recorded Confirmed Type allopurinol 100 mg tablet 100 mg PO QAM #0 tabs 07/05/12 02/22/23 History acetaminophen 500 mg tablet 500 mg PO Q6H PRN PAIN/FEVER 02/22/23 02/22/23 History cholecalciferol (vitamin D3) 25 25 mcg PO QAM 02/22/23 02/22/23 History mcg (1,000 unit) chewable tablet (Vitamin D3) cyanocobalamin (vitamin B-12) 1,000 mcg PO QAM 02/22/23 02/22/23 History 1,000 mcg tablet (Vitamin B-12) diltiazem HCl 120 mg capsule,24 120 mg PO BID 02/22/23 02/22/23 History hr,extended release enalapril maleate 20 mg tablet 20 mg PO BID 02/22/23 02/22/23 History gabapentin 300 mg capsule 300 mg PO BID 02/22/23 02/22/23 History memantine 10 mg tablet 10 mg PO BID 02/22/23 02/22/23 History sertraline 25 mg tablet 25 mg PO HS 02/22/23 02/22/23 History simvastatin 10 mg tablet 10 mg PO HS 02/22/23 02/22/23 History Patient History Medical History Depression RLS (restless legs syndrome) Alzheimer's dementia Dyslipidemia CKD (chronic kidney disease), stage III Diabetes mellitus type 2, diet-controlled HTN (hypertension) Surgical History History of hysterectomy (Unknown) History of cataract surgery Status post total knee replacement, left Hx of tonsillectomy Family History Other Heart disease Stroke Social History Smoking Status: Never smoker Do You Dip or Chew Tobacco: No; Hx Alcohol Use: No Hx Substance Use: No Preferred Language: Korean Communication Ability: Impaired Communication Ability Comment: pt confused Beliefs That Will Affect Care: None Current Living Situation: Family Current Living Situation Comment: lives with daughter Other Information That Helps Us Care for You: No Feels Safe at Home: Yes Safety Concerns: Feels Safe At This Time Assistive Devices: Denture - Upper, Glasses, Hearing Aid - Bilateral and Walker Assistive Devices Comment: glasses and hearing aids not here Review of Systems Review of Systems: Unobtainable due to cognitive status Physical Exam Constitutional: + ill appearing and + obese Eyes: PERRL, conjunctivae normal, anicteric sclerae ENMT: external ear and nose normal, oropharynx normal Neck: trachea midline, no thyromegaly Respiratory: + audible wheezes Cardiovascular: Rate/Rhythm: + irregularly irregular Heart Sounds: normal S1 and normal S2; no murmur Extremities: + edema (Chronic stasis changes) Gastrointestinal (Abdomen): normal bowel sounds, soft, nontender, no hepatosplenomegaly Psychiatric: Orientation: oriented to person and cooperative Results & Data Vital Signs (Past 12 Hours) Vital Signs Temp Pulse Resp BP Pulse Ox O2 Del Method O2 Flow Rate 02/23/23 11:42 36.9 C 59 L 18 120/77 93 Nasal Cannula 2 02/23/23 10:26 78 18 97 Nasal Cannula 2 02/23/23 07:42 36.9 C 79 18 135/77 90 Room Air 02/23/23 07:15 Room Air 02/23/23 03:02 36.8 C 70 18 125/75 94 Room Air Laboratory Results Laboratory Results - last 24 hr 02/22/23 02/22/23 02/22/23 11:37 11:57 15:55 WBC RBC Hgb Hct MCV MCH MCHC RDW Std Deviation RDW Coeff of Kylee Plt Count MPV APTT PTT Ratio Sodium Potassium Chloride Carbon Dioxide Anion Gap BUN Creatinine Est Cr Clr Drug Dosing Est GFR ( Amer) Est GFR (Non-Af Amer) BUN/Creatinine Ratio Glucose Calcium Total Creatine Kinase 297 H Troponin I High Sens Urine Color Yellow Urine Appearance Cloudy A Urine pH 6.0 Ur Specific [place] 1.021 Urine Protein 1+ H Urine Glucose (UA) Negative Urine Ketones Trace H Urine Blood Negative Urine Nitrite Positive A Urine Bilirubin Negative Urine Urobilinogen Negative Ur Leukocyte Esterase 2+ H Urine WBC (Auto) >30 H Urine RBC (Auto) 0-4 U Hyaline Cast (Auto) 0 U Epithel Cells (Auto) 10-20 H Urine Bacteria (Auto) 4+ H Urine Yeast Not Reportable Adenovirus (PCR) Not Detected B. pertussis DNA (PCR) Not Detected B.parapertussis DNA PCR Not Detected C. pneumoniae DNA (PCR) Not Detected Coronavirus OC43 (PCR) Not Detected Coronavirus HKU1 (PCR) Not Detected Coronavirus 229E (PCR) Not Detected SARS-CoV-2 (PCR) Not Detected Coronavirus NL63 (PCR) Not Detected Human Metapneumovir PCR Not Detected Influenza Type A (PCR) Not Detected Influenza Type B (PCR) Not Detected M. pneumoniae (PCR) Not Detected Parainfluenza 1 (PCR) Not Detected Parainfluenza 2 (PCR) Not Detected Parainfluenza 3 (PCR) Not Detected Parainfluenza 4 (PCR) Not Detected RSV (PCR) Not Detected Entero/Rhino (PCR) Not Detected 02/22/23 02/22/23 02/23/23 18:26 22:42 05:40 WBC 7.95 RBC 3.20 L Hgb 10.0 L Hct 31.7 L MCV 99.1 MCH 31.3 MCHC 31.5 L RDW Std Deviation 51.5 H RDW Coeff of Kylee 14.2 Plt Count 257 MPV 9.7 APTT 39.3 H 47.3 H* PTT Ratio 1.4 1.7 Sodium 140 Potassium 3.8 Chloride 110 H Carbon Dioxide 22 Anion Gap 8 BUN 31 H Creatinine 0.96 D Est Cr Clr Drug Dosing 46.6 Est GFR ( Amer) 62.1 Est GFR (Non-Af Amer) 53.6 BUN/Creatinine Ratio 32.3 H Glucose 113 H Calcium 8.3 L Total Creatine Kinase Troponin I High Sens 55.7 H* 53.1 H* Urine Color Urine Appearance Urine pH Ur Specific [place] Urine Protein Urine Glucose (UA) Urine Ketones Urine Blood Urine Nitrite Urine Bilirubin Urine Urobilinogen Ur Leukocyte Esterase Urine WBC (Auto) Urine RBC (Auto) U Hyaline Cast (Auto) U Epithel Cells (Auto) Urine Bacteria (Auto) Urine Yeast Adenovirus (PCR) B. pertussis DNA (PCR) B.parapertussis DNA PCR C. pneumoniae DNA (PCR) Coronavirus OC43 (PCR) Coronavirus HKU1 (PCR) Coronavirus 229E (PCR) SARS-CoV-2 (PCR) Coronavirus NL63 (PCR) Human Metapneumovir PCR Influenza Type A (PCR) Influenza Type B (PCR) M. pneumoniae (PCR) Parainfluenza 1 (PCR) Parainfluenza 2 (PCR) Parainfluenza 3 (PCR) Parainfluenza 4 (PCR) RSV (PCR) Entero/Rhino (PCR) Diagnostic Findings EKG: Atrial fibrillation with left bundle branch block pattern. Echocardiogram: Moderate left ventricular hypertrophy. Dyssynergy contraction pattern of the septum EF 50-55% aortic sclerosis without stenosis, moderate mitral insufficiency
--- NOTE | 2023-02-23 14:07 | Hospitalist Progress Note ---
Date of Service February 23, 2023 Assessment & Plan (1) Fall: (2) Generalized weakness: (3) UTI (urinary tract infection): (4) New onset atrial fibrillation: (5) Elevated troponin: (6) HTN (hypertension): (7) Depression: (8) RLS (restless legs syndrome): (9) Alzheimer's dementia: (10) CKD (chronic kidney disease), stage III: (11) Diabetes mellitus type 2, diet-controlled: (12) Dyslipidemia: Plan Patient is 87-year-old female with PMH of type 2 diabetes, dyslipidemia, hypertension, stage III CKD, RLS, Alzheimer's disease, depression and other medical problems listed below who presents after fall at home last evening and pain in right leg and was found to have a UTI and new onset atrial fibrillation. New onset atrial fibrillation --ECHO: Left ventricle is normal in size. Moderate concentric LVH. Septal motion is consistent with conduction abnormality. No regional wall motion abnormality. EF 50 to 55%. Left atrium is severely dilated. Right atrium is mildly dilated. Aortic valve sclerosis mild, without significant aortic valvular stenosis. Moderate mitral regurgitation. --Normal TSH -- IV diltiazem discontinued Continue metoprolol 12.5 mg twice daily On IV heparin for anticoagulation Appreciate cardiology input Adjust medications as needed Volume overload Likely secondary to A-fib RVR, IV fluids --CXR:Cardiomegaly with questionable mild pulmonary congestion. New right lower lung airspace opacity likely reflects atelectasis, less likely pneumonia or aspiration. Continue IV Lasix Monitor volume status closely Nebs as needed Troponin elevation Demand ischemia secondary to above UTI Urine culture growing gram-negative bacilli Continue Rocephin Generalized weakness Fall R foot pain Denies head trauma CT head, CT cervical spine, R foot XR, Tib/fib XR without acute abnormality PT/OT, fall precautions, PRN Tylenol HTN Continue Enalapril,Metoprolol Monitor Depression Continue sertraline CKD III Baseline Cr ~1.3 Monitor DM II Diet controlled Monitor BGs No tight glycemic management needed given advanced age We will consider starting insulin sliding scale if needed Alzheimer's disease A&O to person and place at baseline, lives with daughter. Continue Memantine HLD Continue statin DVT Px: IV heparin Code status: DNR/DNI Admission and Anticipated Discharge Date Admission Date: February 22, 2023 Subjective Patient is seen and examined at bedside States having chest congestion, dyspnea this morning which improved after IV Lasix Remains in A-fib, rate controlled Denies any nausea, vomiting, dizziness, abdominal pain Transiently required supplemental oxygen No other complaints Review of Systems Review of Systems: All systems reviewed & are unremarkable except as noted in Subjective Physical Exam Physical Exam: Physical Exam: Vitals signs as noted above General Appearance:Obese, no apparent distress Head: normocephalic, Atraumatic Eyes: normal inspection, EOMI Neck: supple, Trachea midline Respiratory/Chest: Normal breath sounds, Basal crackles, scant wheeze, No accessory muscle use Cardiovascular: Irregularly Irregular, No murmur Abdomen/GI:Soft, Non tender, Bowel sounds present Extremities/Musculoskeletal:normal inspection, 2+ B/L LE edema, +Venous stasis Neurologic/Psych:AAO, grossly no focal neurological deficits Skin: normal color, warm Results & Data Results & Data Vital Signs (Past 12 Hours) Vital Signs Temp Pulse Resp BP Pulse Ox O2 Del Method O2 Flow Rate 02/23/23 13:12 93 Room Air 02/23/23 11:42 36.9 C 59 L 18 120/77 93 Nasal Cannula 2 02/23/23 10:26 78 18 97 Nasal Cannula 2 02/23/23 07:42 36.9 C 79 18 135/77 90 Room Air 02/23/23 07:15 Room Air 02/23/23 03:02 36.8 C 70 18 125/75 94 Room Air Laboratory Results Short CBC 02/23/23 Range/Units 05:40 WBC 7.95 (4.8-10.8) K/ul Hgb 10.0 L (12.0-16.0) g/dl Hct 31.7 L (37.0-47.0) % Plt Count 257 (130-400) K/uL BMP 02/23/23 05:40 Sodium 140 Potassium 3.8 Chloride 110 H Carbon Dioxide 22 BUN 31 H Creatinine 0.96 D Glucose 113 H Calcium 8.3 L Cardiac Enzymes 02/22/23 Range/Units 11:37 Total Creatine Kinase 297 H (26-192) U/L Urine 02/22/23 Range/Units 15:55 Urine Color Yellow Urine Appearance Cloudy A (Clear) Urine pH 6.0 (4.5-7.5) Ur Specific [place] 1.021 (1.000-1.030) Urine Protein 1+ H (Negative) Urine Glucose (UA) Negative (Negative)
[2023-02-23] MEDS: HEPARIN SODIUM/DEXTROSE 25,000 UNITS/500 ML BAG IV SCH (18:07)
--- NOTE | 2023-02-23 19:06 | Electrocardiogram Report ---
Test Reason : Blood Pressure : / mmHG Vent. Rate : 099 BPM Atrial Rate : 000 BPM P-R Int : 000 ms QRS Dur : 112 ms QT Int : 386 ms P-R-T Axes : 000 -46 108 degrees QTc Int : 495 ms Atrial fibrillation Left axis deviation Incomplete left bundle block Low voltage QRS Abnormal ECG When compared with ECG of 08-FEB-2013 00:50, Atrial fibrillation has replaced Sinus rhythm Vent. rate has increased BY 34 BPM Incomplete left bundle block is now Present Confirmed by Onel Bowles ([id number]) on 02/23/2023 7:06:05 PM Referred By: Confirmed By:Onel Bowles
[2023-02-23] MEDS: SERTRALINE HCL 50 MG TABLET PO SCH (20:10)
[2023-02-23] MEDS: SIMVASTATIN 10 MG TAB PO SCH (20:11)
--- NOTE | 2023-02-23 22:18 | Electrocardiogram Report ---
Test Reason : Blood Pressure : / mmHG Vent. Rate : 077 BPM Atrial Rate : 070 BPM P-R Int : 000 ms QRS Dur : 116 ms QT Int : 434 ms P-R-T Axes : 000 -50 100 degrees QTc Int : 491 ms Atrial fibrillation Left axis deviation Low voltage QRS Inferior infarct (cited on or before 22-FEB-2023) Possible Anterolateral infarct (cited on or before 22-FEB-2023) Abnormal ECG When compared with ECG of 22-FEB-2023 11:26, (unconfirmed) Questionable change in initial forces of Lateral leads Confirmed by Onel Bowles ([id number]) on 02/23/2023 10:18:45 PM Referred By: REFERRED SELF Confirmed By:Onel Bowles
[2023-02-24] MEDS ORDERED: OLANZapine 10 MG/2.1 ML SDV IM PRN (01:37)
[2023-02-24] MEDS ORDERED: OLANZAPINE 2.5 MG TAB PO STA (01:49)
[2023-02-24] MEDS ORDERED: OLANZapine 10 MG/2.1 ML SDV IM STA (03:37)
[2023-02-24] MEDS ORDERED: METOPROLOL TARTRATE 1 MG/ML VIAL IV STA (04:39)
[2023-02-24] MEDS ORDERED: METOPROLOL TARTRATE 1 MG/ML VIAL IV ONE (04:46)
[2023-02-24] MEDS: POTASSIUM CHLORIDE / WTR 10 MEQ/100 ML PLCT IV SCH ×2 (05:12→06:15)
[2023-02-24] MEDS ORDERED: MAGNESIUM SULFATE / D5W 1 GM/100 ML BAG IV ONE (05:15)
[2023-02-24] MEDS: LEVALBUTEROL HCL 0.63 MG/3 ML NEB NEB PRN (06:21)
[2023-02-24] MEDS ORDERED: ZIPRASIDONE 20 MG/ML SDV IM STA (06:37)
[2023-02-24] MEDS ORDERED: FUROSEMIDE INJ 20 MG/2 ML VIAL IV ONE (06:38)
[2023-02-24 06:42] LABS: Hematocrit (blood only) 32.6 % (37.0-47.0); Hemoglobin 10.6 g/dl (12.0-16.0); Mean Corpuscular Hemoglobin 31.8 pg (25.0-34.0); Mean Corpuscular Hgb Conc 32.5 g/dL (32.0-36.0); Mean Corpuscular Volume 97.9 fL (80.0-100.0); Mean Platelet Volume 9.9 fL (9.4-12.4); Platelet Count 281 K/uL (130-400); RDW Coefficient of Variation 13.9 % (11.5-14.5); Red Blood Count 3.33 M/uL (4.20-5.40); White Blood Count 11.98 K/ul (4.8-10.8)
[2023-02-24 06:52] LABS: BUN Creatinine Ratio 24.6 (10-20); Calcium 8.7 mg/dl (8.6-10.3); Est GFR (African American) 44.7 ml/min; Est GFR (Non-African American) 38.5 ml/min; Magnesium 2.1 mg/dl (1.7-2.4); Potassium 4.1 mmol/L (3.5-5.1)
[2023-02-24] MEDS ORDERED: FUROSEMIDE 40 MG/4 ML VIAL IV SCH (07:00)
[2023-02-24 07:37] LABS: Partial Thromboplastin Ratio 1.6; Partial Thromboplastin Time 44.2 Seconds (21.0-31.0)
[2023-02-24] MEDS ORDERED: cefTRIAXone SODIUM 1,000 MG in DEXTROSE 5 % MINI-B 50 ML IV SCH (07:45)
[2023-02-24] MEDS ORDERED: MELATONIN 3 MG TAB PO PRN (08:13)
[2023-02-24] MEDS: GABAPENTIN 300 MG CAP PO SCH ×2 (08:25→19:52)
[2023-02-24] MEDS: CYANOCOBALAMIN (B-12) 500 MCG TABLET PO SCH (08:25)
[2023-02-24] MEDS: MEMANTINE HCL 10 MG TAB PO SCH ×2 (08:25→19:52)
[2023-02-24] MEDS: ENALAPRIL MALEATE 10 MG TAB PO SCH ×2 (08:25→19:51)
[2023-02-24] MEDS: METOPROLOL SUCC 25MG EXT REL TAB PO SCH ×2 (08:26→19:51)
[2023-02-24] MEDS: allopurinoL 100 MG TAB PO SCH (08:26)
[2023-02-24] MEDS: CHOLECALCIFEROL 1,000 UNITS 25 MCG TAB PO SCH (08:26)
[2023-02-24] MEDS: cefTRIAXone SODIUM 2,000 MG in DEXTROSE 5 % MINI-B 50 ML IV SCH (08:30)
[2023-02-24] MEDS ORDERED: METOPROLOL SUCC 25MG EXT REL TAB PO SCH (09:00)
--- NOTE | 2023-02-24 09:35 | Cardiology Progress Note ---
Date of Service February 24, 2023 Assessment & Plan (1) Generalized weakness: (2) New onset atrial fibrillation: (3) Alzheimer's dementia: (4) Fall: (5) Wheeze: Plan 87-year-old female with late onset Alzheimer's dementia and medical issues as listed above presented with symptoms of weakness fatigue and falls multiple contusions. On presentation found to be in atrial fibrillation, newly observed. Metoprolol tartrate added to medical regimen. Rates are controlled. Patient anticoagulated with heparin though appears to be poor candidate for long-term anticoagulation Suspect multifactorial concerns including urinary tract infection This morning marked wheezing after fluid resuscitation Recommendations. Discontinue diltiazem. Change metoprolol to tartrate to metoprolol succinate 12.5 g twice per IV furosemide given this morning we will follow I's and O's closely suspect current wheezing complaints are secondary to volume overload. Low threshold for investigation for thromboembolic phenomena We will follow as clinical course progresses. Patient appears high risk for long-term anticoagulation unless home /social settings change 02/24/2023 Clinically improved after diuresis. Heart rates slightly elevated will increase metoprolol succinate to 25 mg/day. Given low normal LV function, heart failure/acute volume overload will avoid diltiazem Stop IV furosemide after dose this morning likely add oral diuretic to her regimen Patient has indications for anticoagulation but fall history concerning. Await PT OT evaluation Admission and Anticipated Discharge Date Admission Date: February 22, 2023 Subjective Patient seen and examined, chart, medications, telemetry reviewed. Appears much more comfortable today no wheezing or shortness of breath. Eating breakfast. Heart rates trending slightly higher, atrial fibrillation but no arrhythmia Weight down 3 kg after diuresis Review of Systems Review of Systems: All systems reviewed & are unremarkable except as noted in Subjective Physical Exam Constitutional: + ill appearing and + obese Eyes: PERRL, conjunctivae normal, anicteric sclerae ENMT: external ear and nose normal, oropharynx normal Neck: trachea midline, no thyromegaly Respiratory: normal respiratory effort, lungs clear to auscultation Auscultation: + diminished lung sounds Cardiovascular: Rate/Rhythm: + irregularly irregular Heart Sounds: normal S1 and normal S2; no murmur Extremities: no edema Gastrointestinal (Abdomen): normal bowel sounds, soft, nontender, no hepatosplenomegaly Psychiatric: Orientation: oriented to person and cooperative Results & Data Vital Signs (Past 12 Hours) Vital Signs Temp Pulse Pulse Resp BP BP Pulse Ox 02/24/23 09:22 02/24/23 07:56 98 H 02/24/23 07:31 36.7 C 118 H 22 138/75 92 02/24/23 06:47 109 H 132/67 02/24/23 06:22 115 H 22 89 L 02/24/23 05:04 113 H 144/77 H 02/24/23 05:03 113 H 143/77 H 02/24/23 02:51 36.8 C 99 H 18 132/73 94 02/23/23 23:20 36.9 C 97 H 22 149/75 H 92 02/23/23 22:33 18 95 02/23/23 22:01 83 O2 Del Method O2 Flow Rate 02/24/23 09:22 Nasal Cannula 2 02/24/23 07:56 02/24/23 07:31 Nasal Cannula 2 02/24/23 06:47 02/24/23 06:22 Room Air 02/24/23 05:04 02/24/23 05:03 02/24/23 02:51 Room Air 02/23/23 23:20 Room Air 02/23/23 22:33 Nasal Cannula 3 02/23/23 22:01 Laboratory Results Laboratory Results - last 24 hr 02/24/23 05:50 WBC 11.98 H RBC 3.33 L Hgb 10.6 L Hct 32.6 L MCV 97.9 MCH 31.8 MCHC 32.5 RDW Std Deviation 50.0 H RDW Coeff of Kylee 13.9 Plt Count 281 MPV 9.9 APTT 44.2 H* PTT Ratio 1.6 Sodium 138 Potassium 4.1 Chloride 107 Carbon Dioxide 22 Anion Gap 9 BUN 31 H Creatinine 1.26 H D Est Cr Clr Drug Dosing 35.0 Est GFR ( Amer) 44.7 Est GFR (Non-Af Amer) 38.5 BUN/Creatinine Ratio 24.6 H Glucose 178 H Calcium 8.7 Magnesium 2.1
[2023-02-24] MEDS ORDERED: METOPROLOL TARTRATE 1 MG/ML VIAL IV PRN (17:22)
--- NOTE | 2023-02-24 17:29 | Hospitalist Progress Note ---
Date of Service February 24, 2023 Assessment & Plan (1) Fall: (2) Generalized weakness: (3) UTI (urinary tract infection): (4) New onset atrial fibrillation: (5) Elevated troponin: (6) HTN (hypertension): (7) Depression: (8) RLS (restless legs syndrome): (9) Alzheimer's dementia: (10) CKD (chronic kidney disease), stage III: (11) Diabetes mellitus type 2, diet-controlled: (12) Dyslipidemia: Plan Patient is 87-year-old female with PMH of type 2 diabetes, dyslipidemia, hypertension, stage III CKD, RLS, Alzheimer's disease, depression and other medical problems listed below who presents after fall at home last evening and pain in right leg and was found to have a UTI and new onset atrial fibrillation. New onset atrial fibrillation --ECHO: Left ventricle is normal in size. Moderate concentric LVH. Septal motion is consistent with conduction abnormality. No regional wall motion abnormality. EF 50 to 55%. Left atrium is severely dilated. Right atrium is mildly dilated. Aortic valve sclerosis mild, without significant aortic valvular stenosis. Moderate mitral regurgitation. --Normal TSH -- IV diltiazem discontinued Increased metoprolol succinate to 25 mg twice daily On IV heparin for anticoagulation IV Lopressor as needed Appreciate cardiology input Needs follow-up with cardiology upon discharge Volume overload Likely secondary to A-fib RVR, IV fluids --CXR:Cardiomegaly with questionable mild pulmonary congestion. New right lower lung airspace opacity likely reflects atelectasis, less likely pneumonia or aspiration. Monitor volume status closely Nebs as needed Received IV Lasix today Consider to transition to p.o. diuretics as able Delirium Reorient frequently Delirium precautions Troponin elevation Demand ischemia secondary to above UTI Urine culture growing E. coli, alpha strep not Enterococcus Blood cultures pending Continue Rocephin Day #2 Generalized weakness Fall R foot pain Denies head trauma CT head, CT cervical spine, R foot XR, Tib/fib XR without acute abnormality PT/OT, fall precautions, PRN Tylenol HTN Continue Enalapril,Metoprolol Monitor Depression Continue sertraline CKD III Baseline Cr ~1.3 Monitor DM II Diet controlled Monitor BGs No tight glycemic management needed given advanced age Will consider starting insulin sliding scale if needed Alzheimer's disease A&O to person and place at baseline, lives with daughter. Continue Memantine HLD Continue statin DVT Px: IV heparin Code status: DNR/DNI Admission and Anticipated Discharge Date Admission Date: February 22, 2023 Subjective Patient is seen and examined at bedside Patient got confused and mildly agitated overnight Pleasant, cooperative during my encounter this morning Discussed with patient's family at bedside States having minimal cough but denies any dyspnea this AM Heart rate slightly elevated today Denies any nausea, vomiting, dizziness, abdominal pain Review of Systems Review of Systems: All systems reviewed & are unremarkable except as noted in Subjective Physical Exam Physical Exam: Physical Exam: Vitals signs as noted above General Appearance:Obese, no apparent distress Head: normocephalic, Atraumatic Eyes: normal inspection, EOMI Neck: supple, Trachea midline Respiratory/Chest: Decreased breath sounds, CTA, No accessory muscle use Cardiovascular: Irregularly Irregular, No murmur Abdomen/GI:Soft, Non tender, Bowel sounds present Extremities/Musculoskeletal:normal inspection, 2+ B/L LE edema, +Venous stasis Neurologic/Psych:AAO, grossly no focal neurological deficits Skin: normal color, warm Results & Data Results & Data Vital Signs (Past 12 Hours) Vital Signs Temp Pulse Pulse Resp BP BP Pulse Ox 02/24/23 16:30 36.7 C 114 H 22 170/87 H 91 02/24/23 11:30 36.4 C L 89 19 135/74 96 02/24/23 09:22 02/24/23 07:56 98 H 02/24/23 07:31 36.7 C 118 H 22 138/75 92 02/24/23 06:47 109 H 132/67 02/24/23 06:22 115 H 22 89 L O2 Del Method O2 Flow Rate 02/24/23 16:30 Nasal Cannula 3.0 02/24/23 11:30 Nasal Cannula 3.0 02/24/23 09:22 Nasal Cannula 2 02/24/23 07:56 02/24/23 07:31 Nasal Cannula 2 02/24/23 06:47 02/24/23 06:22 Room Air Laboratory Results Short CBC 02/24/23 Range/Units 05:50 WBC 11.98 H (4.8-10.8) K/ul Hgb 10.6 L (12.0-16.0) g/dl Hct 32.6 L (37.0-47.0) % Plt Count 281 (130-400) K/uL BMP 11/06/23 05:50 Sodium 138 Potassium 4.1 Chloride 107 Carbon Dioxide 22 BUN 31 H Creatinine 1.26 H D Glucose 178 H Calcium 8.7
[2023-02-24] MEDS: HEPARIN SODIUM/DEXTROSE 25,000 UNITS/500 ML BAG IV SCH (17:51)
[2023-02-24] MEDS: SERTRALINE HCL 50 MG TABLET PO SCH (19:51)
[2023-02-24] MEDS: SIMVASTATIN 10 MG TAB PO SCH (19:52)
[2023-02-25 05:13] LABS: Hematocrit (blood only) 30.3 % (37.0-47.0); Hemoglobin 9.7 g/dl (12.0-16.0); Mean Corpuscular Hemoglobin 31.3 pg (25.0-34.0); Mean Corpuscular Volume 97.7 fL (80.0-100.0); Mean Platelet Volume 9.9 fL (9.4-12.4); Platelet Count 260 K/uL (130-400); RDW Coefficient of Variation 14.2 % (11.5-14.5); RDW Standard Deviation 50.7 fL (36.4-46.3); White Blood Count 8.59 K/ul (4.8-10.8)
[2023-02-25 05:32] LABS: BUN Creatinine Ratio 31.4 (10-20); Calcium 8.5 mg/dl (8.6-10.3); Creatinine Clr Calc Pharmacy 43.2 ml/min; Est GFR (African American) 57.7 ml/min; Est GFR (Non-African American) 49.8 ml/min; Potassium 3.7 mmol/L (3.5-5.1)
[2023-02-25 06:35] LABS: Partial Thromboplastin Time 55.5 Seconds (21.0-31.0)
[2023-02-25] MEDS: METOPROLOL SUCC 25MG EXT REL TAB PO SCH (08:46)
[2023-02-25] MEDS: MEMANTINE HCL 10 MG TAB PO SCH ×2 (08:46→20:00)
[2023-02-25] MEDS: GABAPENTIN 300 MG CAP PO SCH ×2 (08:46→20:00)
[2023-02-25] MEDS: CHOLECALCIFEROL 1,000 UNITS 25 MCG TAB PO SCH (08:46)
[2023-02-25] MEDS: ENALAPRIL MALEATE 10 MG TAB PO SCH ×2 (08:46→20:02)
[2023-02-25] MEDS: CYANOCOBALAMIN (B-12) 500 MCG TABLET PO SCH (08:46)
[2023-02-25] MEDS: allopurinoL 100 MG TAB PO SCH (08:46)
[2023-02-25] MEDS: cefTRIAXone SODIUM 2,000 MG in DEXTROSE 5 % MINI-B 50 ML IV SCH (08:46)
[2023-02-25] MEDS: LEVALBUTEROL HCL 0.63 MG/3 ML NEB NEB PRN (08:50)
--- NOTE | 2023-02-25 13:48 | Cardiology Progress Note ---
Date of Service February 25, 2023 Assessment & Plan (1) Generalized weakness: (2) New onset atrial fibrillation: (3) Alzheimer's dementia: (4) Fall: (5) Wheeze: Plan 87-year-old female with late onset Alzheimer's dementia and medical issues as listed above presented with symptoms of weakness fatigue and falls multiple contusions. On presentation found to be in atrial fibrillation, newly observed. Metoprolol tartrate added to medical regimen. Rates are controlled. Patient anticoagulated with heparin though appears to be poor candidate for long-term anticoagulation Suspect multifactorial concerns including urinary tract infection This morning marked wheezing after fluid resuscitation Recommendations. Discontinue diltiazem. Change metoprolol to tartrate to metoprolol succinate 12.5 g twice per IV furosemide given this morning we will follow I's and O's closely suspect current wheezing complaints are secondary to volume overload. Low threshold for investigation for thromboembolic phenomena We will follow as clinical course progresses. Patient appears high risk for long-term anticoagulation unless home /social settings change 02/24/2023 Clinically improved after diuresis. Heart rates slightly elevated will increase metoprolol succinate to 25 mg/day. Given low normal LV function, heart failure/acute volume overload will avoid diltiazem Stop IV furosemide after dose this morning likely add oral diuretic to her regimen Patient has indications for anticoagulation but fall history concerning. Await PT OT evaluation 02/25/2023 Concerns 1. New onset atrial fibrillation 2. Alzheimer's dementia with recent multiple falls high risk for long-term anticoagulation Planned adjustment in medical therapies Will increase metoprolol succinate to 50 mg twice per day for further heart rate control Add furosemide 20 mg p.o. daily and spironolactone 12.5 mg/day Admission and Anticipated Discharge Date Admission Date: February 22, 2023 Subjective No acute complaints today. Heart rate and blood pressure still trending high at times. No dizziness or lightheadedness no bradycardia. No orthopnea. Lower extremity edema mostly resolved Physical Exam Constitutional: + ill appearing and + obese Eyes: PERRL, conjunctivae normal, anicteric sclerae ENMT: external ear and nose normal, oropharynx normal Neck: trachea midline, no thyromegaly Respiratory: normal respiratory effort, lungs clear to auscultation + audible wheezes Auscultation: + diminished lung sounds Cardiovascular: Rate/Rhythm: + irregularly irregular Heart Sounds: normal S1 and normal S2; no murmur Extremities: no edema Gastrointestinal (Abdomen): normal bowel sounds, soft, nontender, no hepatosplenomegaly Psychiatric: Orientation: oriented to person and cooperative Results & Data Vital Signs (Past 12 Hours) Vital Signs Temp Pulse Resp BP Pulse Ox O2 Del Method O2 Flow Rate 02/25/23 11:43 36.7 C 101 H 18 145/88 H 98 Nasal Cannula 2.5 02/25/23 09:27 Nasal Cannula 2 02/25/23 08:51 99 H 20 92 Nasal Cannula 2 02/25/23 07:41 36.4 C L 100 H 19 140/83 97 Nasal Cannula 2.5 02/25/23 03:39 36.4 C L 96 H 18 134/87 98 Nasal Cannula 2 Laboratory Results Laboratory Results - last 24 hr 02/25/23 04:32 WBC 8.59 RBC 3.10 L Hgb 9.7 L Hct 30.3 L MCV 97.7 MCH 31.3 MCHC 32.0 RDW Std Deviation 50.7 H RDW Coeff of Kylee 14.2 Plt Count 260 MPV 9.9 APTT 55.5 H* PTT Ratio 2.0 Sodium 137 Potassium 3.7 Chloride 105 Carbon Dioxide 25 Anion Gap 7 BUN 32 H Creatinine 1.02 Est Cr Clr Drug Dosing 43.2 Est GFR ( Amer) 57.7 Est GFR (Non-Af Amer) 49.8 BUN/Creatinine Ratio 31.4 H Glucose 114 H Calcium 8.5 L Procalcitonin < 0.05
[2023-02-25] MEDS: SPIRONOLACTONE 12.5 MG TAB PO SCH (14:45)
[2023-02-25] MEDS: HEPARIN SODIUM/DEXTROSE 25,000 UNITS/500 ML BAG IV SCH (14:46)
[2023-02-25] MEDS: FUROSEMIDE 20 MG TAB PO SCH (15:41)
--- NOTE | 2023-02-25 17:03 | Hospitalist Progress Note ---
Date of Service February 25, 2023 Assessment & Plan (1) Fall: (2) Generalized weakness: (3) UTI (urinary tract infection): (4) New onset atrial fibrillation: (5) Elevated troponin: (6) HTN (hypertension): (7) Depression: (8) RLS (restless legs syndrome): (9) Alzheimer's dementia: (10) CKD (chronic kidney disease), stage III: (11) Diabetes mellitus type 2, diet-controlled: (12) Dyslipidemia: Plan Patient is 87-year-old female with PMH of type 2 diabetes, dyslipidemia, hypertension, stage III CKD, RLS, Alzheimer's disease, depression and other medical problems listed below who presents after fall at home last evening and pain in right leg and was found to have a UTI and new onset atrial fibrillation. New onset atrial fibrillation --ECHO: Left ventricle is normal in size. Moderate concentric LVH. Septal motion is consistent with conduction abnormality. No regional wall motion abnormality. EF 50 to 55%. Left atrium is severely dilated. Right atrium is mildly dilated. Aortic valve sclerosis mild, without significant aortic valvular stenosis. Moderate mitral regurgitation. --Normal TSH -- IV diltiazem discontinued On IV heparin for anticoagulation IV Lopressor as needed Appreciate cardiology input Needs follow-up with cardiology upon discharge Metoprolol increased to 50 mg twice daily Volume overload Likely secondary to A-fib RVR, IV fluids --CXR:Cardiomegaly with questionable mild pulmonary congestion. New right lower lung airspace opacity likely reflects atelectasis, less likely pneumonia or aspiration. Monitor volume status closely Nebs as needed Received IV Lasix Started on p.o. Lasix 20 mg daily, Aldactone 12.5 mg daily Delirium Reorient frequently Delirium precautions Troponin elevation Demand ischemia secondary to above UTI Urine culture growing E. coli, alpha strep not Enterococcus Blood cultures: Negative to date Continue Rocephin Day #3 Generalized weakness Fall R foot pain Denies head trauma CT head, CT cervical spine, R foot XR, Tib/fib XR without acute abnormality PT/OT, fall precautions, PRN Tylenol HTN Continue Enalapril,Metoprolol Monitor Depression Continue sertraline CKD III Baseline Cr ~1.3 Monitor DM II Diet controlled Monitor BGs No tight glycemic management needed given advanced age Will consider starting insulin sliding scale if needed Alzheimer's disease A&O to person and place at baseline, lives with daughter. Continue Memantine HLD Continue statin DVT Px: IV heparin Code status: DNR/DNI Admission and Anticipated Discharge Date Admission Date: February 22, 2023 Subjective Patient is seen and examined at bedside More alert, awake, oriented today Leg edema improved Minimal dyspnea on exertion Denies any chest pain, nausea, vomiting, dizziness, abdominal pain Review of Systems Review of Systems: All systems reviewed & are unremarkable except as noted in Subjective Physical Exam Physical Exam: Physical Exam: Vitals signs as noted above General Appearance:Obese, no apparent distress Head: normocephalic, Atraumatic Eyes: normal inspection, EOMI Neck: supple, Trachea midline Respiratory/Chest: Decreased breath sounds, scant wheezes, no accessory muscle use Cardiovascular: Irregularly Irregular, No murmur Abdomen/GI:Soft, Non tender, Bowel sounds present Extremities/Musculoskeletal:normal inspection, 1+ B/L LE edema, +Venous stasis Neurologic/Psych:AAO, grossly no focal neurological deficits Skin: normal color, warm Results & Data Results & Data Vital Signs (Past 12 Hours) Vital Signs Temp Pulse Pulse Resp BP Pulse Ox O2 Del Method 02/25/23 15:53 Nasal Cannula 02/25/23 15:36 36.7 C 90 18 123/74 96 Nasal Cannula 02/25/23 15:00 92 H 02/25/23 11:43 36.7 C 101 H 18 145/88 H 98 Nasal Cannula 02/25/23 09:27 Nasal Cannula 02/25/23 08:51 99 H 20 92 Nasal Cannula 02/25/23 07:41 36.4 C L 100 H 19 140/83 97 Nasal Cannula O2 Flow Rate 02/25/23 15:53 2 02/25/23 15:36 2.5 02/25/23 15:00 02/25/23 11:43 2.5 02/25/23 09:27 2 02/25/23 08:51 2 02/25/23 07:41 2.5 Laboratory Results Short CBC 02/25/23 Range/Units 04:32 WBC 8.59 (4.8-10.8) K/ul Hgb 9.7 L (12.0-16.0) g/dl Hct 30.3 L (37.0-47.0) % Plt Count 260 (130-400) K/uL BMP 02/25/23 04:32 Sodium 137 Potassium 3.7 Chloride 105 Carbon Dioxide 25 BUN 32 H Creatinine 1.02 Glucose 114 H Calcium 8.5 L
[2023-02-25] MEDS: SIMVASTATIN 10 MG TAB PO SCH (20:00)
[2023-02-25] MEDS: SERTRALINE HCL 50 MG TABLET PO SCH (20:00)
[2023-02-25] MEDS: METOPROLOL SUCC 50MG EXT REL TAB PO SCH (20:00)
[2023-02-26 06:42] LABS: Hemoglobin 10.6 g/dl (12.0-16.0); Mean Corpuscular Hemoglobin 31.5 pg (25.0-34.0); Mean Corpuscular Hgb Conc 32.1 g/dL (32.0-36.0); Mean Corpuscular Volume 98.2 fL (80.0-100.0); Mean Platelet Volume 9.8 fL (9.4-12.4); Platelet Count 286 K/uL (130-400); RDW Coefficient of Variation 13.8 % (11.5-14.5); RDW Standard Deviation 49.6 fL (36.4-46.3); Red Blood Count 3.36 M/uL (4.20-5.40); White Blood Count 8.72 K/ul (4.8-10.8)
[2023-02-26 06:59] LABS: Calcium 8.5 mg/dl (8.6-10.3); Potassium 3.9 mmol/L (3.5-5.1)
[2023-02-26 07:05] LABS: BUN Creatinine Ratio 32.4 (10-20); Creatinine Clr Calc Pharmacy 41.8 ml/min; Est GFR (African American) 55.7 ml/min; Est GFR (Non-African American) 48.1 ml/min
[2023-02-26 07:15] LABS: Partial Thromboplastin Ratio 1.6
[2023-02-26 07:16] LABS: Partial Thromboplastin Time 45.3 Seconds (21.0-31.0)
[2023-02-26] MEDS: SPIRONOLACTONE 12.5 MG TAB PO SCH (08:46)
[2023-02-26] MEDS: CHOLECALCIFEROL 1,000 UNITS 25 MCG TAB PO SCH (08:47)
[2023-02-26] MEDS: METOPROLOL SUCC 50MG EXT REL TAB PO SCH ×2 (08:47→20:20)
[2023-02-26] MEDS: allopurinoL 100 MG TAB PO SCH (08:47)
[2023-02-26] MEDS: FUROSEMIDE 20 MG TAB PO SCH (08:47)
[2023-02-26] MEDS: GABAPENTIN 300 MG CAP PO SCH ×2 (08:47→20:19)
[2023-02-26] MEDS: MEMANTINE HCL 10 MG TAB PO SCH ×2 (08:47→20:20)
[2023-02-26] MEDS: CYANOCOBALAMIN (B-12) 500 MCG TABLET PO SCH (08:47)
[2023-02-26] MEDS: ENALAPRIL MALEATE 10 MG TAB PO SCH ×2 (08:47→20:19)
[2023-02-26] MEDS: cefTRIAXone SODIUM 2,000 MG in DEXTROSE 5 % MINI-B 50 ML IV SCH (08:47)
--- NOTE | 2023-02-26 11:20 | Cardiology Progress Note ---
Date of Service February 26, 2023 Assessment & Plan (1) Generalized weakness: (2) New onset atrial fibrillation: (3) Alzheimer's dementia: (4) Fall: (5) Wheeze: Plan 87-year-old female with late onset Alzheimer's dementia and medical issues as listed above presented with symptoms of weakness fatigue and falls multiple contusions. On presentation found to be in atrial fibrillation, newly observed. Metoprolol tartrate added to medical regimen. Rates are controlled. Patient anticoagulated with heparin though appears to be poor candidate for long-term anticoagulation Suspect multifactorial concerns including urinary tract infection This morning marked wheezing after fluid resuscitation Recommendations. Discontinue diltiazem. Change metoprolol to tartrate to metoprolol succinate 12.5 g twice per IV furosemide given this morning we will follow I's and O's closely suspect current wheezing complaints are secondary to volume overload. Low threshold for investigation for thromboembolic phenomena We will follow as clinical course progresses. Patient appears high risk for long-term anticoagulation unless home /social settings change 02/24/2023 Clinically improved after diuresis. Heart rates slightly elevated will increase metoprolol succinate to 25 mg/day. Given low normal LV function, heart failure/acute volume overload will avoid diltiazem Stop IV furosemide after dose this morning likely add oral diuretic to her regimen Patient has indications for anticoagulation but fall history concerning. Await PT OT evaluation 02/25/2023 Concerns 1. New onset atrial fibrillation 2. Alzheimer's dementia with recent multiple falls high risk for long-term anticoagulation Planned adjustment in medical therapies Will increase metoprolol succinate to 50 mg twice per day for further heart rate control Add furosemide 20 mg p.o. daily and spironolactone 12.5 mg/day 02/26/2023 Assessment and plan as noted above. Heart rates trending towards better control patient on good medical regimen We will discontinue IV heparin as long-term anticoagulation not recommended Multiple fall history Admission and Anticipated Discharge Date Admission Date: February 22, 2023 Subjective Patient seen and examined, chart, medications, telemetry reviewed. No acute complaints today "feels better though poor historian" Atrial fibrillation rates are coming under control Improved edema Review of Systems Review of Systems: All systems reviewed & are unremarkable except as noted in Subjective Physical Exam Constitutional: + obese; no acute distress Eyes: PERRL, conjunctivae normal, anicteric sclerae ENMT: external ear and nose normal, oropharynx normal Neck: trachea midline, no thyromegaly Respiratory: normal respiratory effort, lungs clear to auscultation + audible wheezes Auscultation: + diminished lung sounds Cardiovascular: Rate/Rhythm: + irregularly irregular Heart Sounds: normal S1 and normal S2; no murmur Extremities: no edema Gastrointestinal (Abdomen): normal bowel sounds, soft, nontender, no hepatosplenomegaly Psychiatric: Orientation: oriented to person and cooperative Results & Data Vital Signs (Past 12 Hours) Vital Signs Temp Pulse Pulse Resp BP Pulse Ox O2 Del Method 02/26/23 10:06 Room Air 02/26/23 10:05 97 H 02/26/23 07:49 36.7 C 92 H 16 122/91 98 Nasal Cannula 02/26/23 04:01 36.9 C 106 H 18 130/82 96 Nasal Cannula O2 Flow Rate 02/26/23 10:06 02/26/23 10:05 02/26/23 07:49 2 02/26/23 04:01 2 Laboratory Results Laboratory Results - last 24 hr 02/26/23 06:00 WBC 8.72 RBC 3.36 L Hgb 10.6 L Hct 33.0 L MCV 98.2 MCH 31.5 MCHC 32.1 RDW Std Deviation 49.6 H RDW Coeff of Kylee 13.8 Plt Count 286 MPV 9.8 APTT 45.3 H* PTT Ratio 1.6 Sodium 136 Potassium 3.9 Chloride 103 Carbon Dioxide 27 Anion Gap 6 BUN 34 H Creatinine 1.05 Est Cr Clr Drug Dosing 41.8 Est GFR ( Amer) 55.7 Est GFR (Non-Af Amer) 48.1 BUN/Creatinine Ratio 32.4 H Glucose 109 H Calcium 8.5 L
--- NOTE | 2023-02-26 15:11 | Hospitalist Progress Note ---
Date of Service February 26, 2023 Assessment & Plan (1) Fall: (2) Generalized weakness: (3) UTI (urinary tract infection): (4) New onset atrial fibrillation: (5) Elevated troponin: (6) HTN (hypertension): (7) Depression: (8) RLS (restless legs syndrome): (9) Alzheimer's dementia: (10) CKD (chronic kidney disease), stage III: (11) Diabetes mellitus type 2, diet-controlled: (12) Dyslipidemia: Plan Patient is 87-year-old female with PMH of type 2 diabetes, dyslipidemia, hypertension, stage III CKD, RLS, Alzheimer's disease, depression and other medical problems listed below who presents after fall at home last evening and pain in right leg and was found to have a UTI and new onset atrial fibrillation. New onset atrial fibrillation --ECHO: Left ventricle is normal in size. Moderate concentric LVH. Septal motion is consistent with conduction abnormality. No regional wall motion abnormality. EF 50 to 55%. Left atrium is severely dilated. Right atrium is mildly dilated. Aortic valve sclerosis mild, without significant aortic valvular stenosis. Moderate mitral regurgitation. --Normal TSH -- IV diltiazem discontinued On IV heparin discontinued Patient poor candidate for long-term anticoagulation IV Lopressor as needed Appreciate cardiology input Needs follow-up with cardiology upon discharge Metoprolol increased to 50 mg twice daily Continue current medications Volume overload Likely secondary to A-fib RVR, IV fluids --CXR:Cardiomegaly with questionable mild pulmonary congestion. New right lower lung airspace opacity likely reflects atelectasis, less likely pneumonia or aspiration. Monitor volume status closely Nebs as needed Received IV Lasix Started on p.o. Lasix 20 mg daily, Aldactone 12.5 mg daily Volume status improved Delirium Reorient frequently Delirium precautions Troponin elevation Demand ischemia secondary to above UTI Urine culture growing E. coli, alpha strep not Enterococcus Blood cultures: Negative to date Continue Rocephin Day #4 Generalized weakness Fall R foot pain Denies head trauma CT head, CT cervical spine, R foot XR, Tib/fib XR without acute abnormality PT/OT, fall precautions, PRN Tylenol HTN Continue Enalapril,Metoprolol Monitor Depression Continue sertraline CKD III Baseline Cr ~1.3 Monitor DM II Diet controlled Monitor BGs No tight glycemic management needed given advanced age Will consider starting insulin sliding scale if needed Alzheimer's disease A&O to person and place at baseline, lives with daughter. Continue Memantine HLD Continue statin DVT Px: SQ heparin Code status: DNR/DNI Disposition Case management to help with discharge planning Admission and Anticipated Discharge Date Admission Date: February 22, 2023 Subjective Patient seen and examined, chart, medications, telemetry reviewed. Reports minimal cough otherwise feels well Off supplemental oxygen IV heparin discontinued Patient denies any chest pain, dyspnea today No other complaints Review of Systems Review of Systems: All systems reviewed & are unremarkable except as noted in Subjective Physical Exam Physical Exam: Physical Exam: Vitals signs as noted above General Appearance:Obese, no apparent distress Head: normocephalic, Atraumatic Eyes: normal inspection, EOMI Neck: supple, Trachea midline Respiratory/Chest: Decreased breath sounds, scant wheezes, no accessory muscle use Cardiovascular: Irregularly Irregular, No murmur Abdomen/GI:Soft, Non tender, Bowel sounds present Extremities/Musculoskeletal:normal inspection, 1+ B/L LE edema, +Venous stasis Neurologic/Psych:AAO, grossly no focal neurological deficits Skin: normal color, warm Results & Data Results & Data Vital Signs (Past 12 Hours) Vital Signs Temp Pulse Pulse Resp BP Pulse Ox O2 Del Method 02/26/23 11:57 36.8 C 96 H 16 125/85 93 Room Air 02/26/23 10:06 Room Air 02/26/23 10:05 97 H 02/26/23 07:49 36.7 C 92 H 16 122/91 98 Nasal Cannula 02/26/23 04:01 36.9 C 106 H 18 130/82 96 Nasal Cannula O2 Flow Rate 02/26/23 11:57 2 02/26/23 10:06 02/26/23 10:05 02/26/23 07:49 2 02/26/23 04:01 2 Laboratory Results Short CBC 02/26/23 Range/Units 06:00 WBC 8.72 (4.8-10.8) K/ul Hgb 10.6 L (12.0-16.0) g/dl Hct 33.0 L (37.0-47.0) % Plt Count 286 (130-400) K/uL BMP 02/26/23 06:00 Sodium 136 Potassium 3.9 Chloride 103 Carbon Dioxide 27 BUN 34 H Creatinine 1.05 Glucose 109 H Calcium 8.5 L
[2023-02-26] MEDS: SERTRALINE HCL 50 MG TABLET PO SCH (20:21)
[2023-02-26] MEDS: SIMVASTATIN 10 MG TAB PO SCH (20:21)
[2023-02-26] MEDS: HEPARIN SOD 5,000 UNIT/0.5 ML VIAL SQ SCH (20:39)
[2023-02-27 05:30] LABS: BUN Creatinine Ratio 35.3 (10-20); Calcium 9.1 mg/dl (8.6-10.3); Creatinine Clr Calc Pharmacy 37.8 ml/min; Est GFR (African American) 49.4 ml/min; Est GFR (Non-African American) 42.6 ml/min; Potassium 4.1 mmol/L (3.5-5.1)
[2023-02-27 05:33] LABS: Partial Thromboplastin Ratio 1.1; Partial Thromboplastin Time 29.7 Seconds (21.0-31.0)
[2023-02-27] MEDS: METOPROLOL SUCC 50MG EXT REL TAB PO SCH ×2 (07:28→21:35)
[2023-02-27] MEDS: cefTRIAXone SODIUM 2,000 MG in DEXTROSE 5 % MINI-B 50 ML IV SCH (07:28)
[2023-02-27] MEDS: HEPARIN SOD 5,000 UNIT/0.5 ML VIAL SQ SCH ×2 (07:29→21:37)
[2023-02-27] MEDS: FUROSEMIDE 20 MG TAB PO SCH (07:29)
[2023-02-27] MEDS: GABAPENTIN 300 MG CAP PO SCH ×2 (07:29→21:35)
[2023-02-27] MEDS: allopurinoL 100 MG TAB PO SCH (07:29)
[2023-02-27] MEDS: CYANOCOBALAMIN (B-12) 500 MCG TABLET PO SCH (07:29)
[2023-02-27] MEDS: MEMANTINE HCL 10 MG TAB PO SCH ×2 (07:29→21:36)
[2023-02-27] MEDS: CHOLECALCIFEROL 1,000 UNITS 25 MCG TAB PO SCH (07:29)
[2023-02-27] MEDS: SPIRONOLACTONE 12.5 MG TAB PO SCH (07:30)
[2023-02-27] MEDS: ENALAPRIL MALEATE 10 MG TAB PO SCH ×2 (07:30→21:36)
--- NOTE | 2023-02-27 15:06 | Hospitalist Progress Note ---
Date of Service February 27, 2023 Assessment & Plan (1) Fall: (2) Generalized weakness: (3) UTI (urinary tract infection): (4) New onset atrial fibrillation: (5) Elevated troponin: (6) HTN (hypertension): (7) Depression: (8) RLS (restless legs syndrome): (9) Alzheimer's dementia: (10) CKD (chronic kidney disease), stage III: (11) Diabetes mellitus type 2, diet-controlled: (12) Dyslipidemia: Plan Patient is 87-year-old female with PMH of type 2 diabetes, dyslipidemia, hypertension, stage III CKD, RLS, Alzheimer's disease, depression and other medical problems listed below who presents after fall at home last evening and pain in right leg and was found to have a UTI and new onset atrial fibrillation. New onset atrial fibrillation --ECHO: Left ventricle is normal in size. Moderate concentric LVH. Septal motion is consistent with conduction abnormality. No regional wall motion abnormality. EF 50 to 55%. Left atrium is severely dilated. Right atrium is mildly dilated. Aortic valve sclerosis mild, without significant aortic valvular stenosis. Moderate mitral regurgitation. --Normal TSH -- IV diltiazem discontinued On IV heparin discontinued Patient poor candidate for long-term anticoagulation IV Lopressor as needed Appreciate cardiology input Needs follow-up with cardiology upon discharge Metoprolol increased to 50 mg twice daily Waiting for rehab placement Volume overload Likely secondary to A-fib RVR, IV fluids --CXR:Cardiomegaly with questionable mild pulmonary congestion. New right lower lung airspace opacity likely reflects atelectasis, less likely pneumonia or aspiration. Monitor volume status closely Nebs as needed Received IV Lasix Started on p.o. Lasix 20 mg daily, Aldactone 12.5 mg daily Volume status improved Continue current diuretics Delirium Reorient frequently Delirium precautions Troponin elevation Demand ischemia secondary to above UTI Urine culture growing E. coli, alpha strep not Enterococcus Blood cultures: Negative to date Continue Rocephin Day #5 Generalized weakness Fall R foot pain Denies head trauma CT head, CT cervical spine, R foot XR, Tib/fib XR without acute abnormality PT/OT, fall precautions, PRN Tylenol HTN Continue Enalapril,Metoprolol Monitor Depression Continue sertraline CKD III Baseline Cr ~1.3 Monitor DM II Diet controlled Monitor BGs No tight glycemic management needed given advanced age Will consider starting insulin sliding scale if needed Alzheimer's disease A&O to person and place at baseline, lives with daughter. Continue Memantine HLD Continue statin DVT Px: SQ heparin Code status: DNR/DNI Disposition Rehab when accepted Admission and Anticipated Discharge Date Admission Date: February 22, 2023 Subjective Patient seen and examined at bedside Less cough today No other complaints Waiting for rehab placement Saturating well on room air While having PT evaluation during my encounter this morning Review of Systems Review of Systems: All systems reviewed & are unremarkable except as noted in Subjective Physical Exam Physical Exam: Physical Exam: Vitals signs as noted above General Appearance:Obese, no apparent distress Head: normocephalic, Atraumatic Eyes: normal inspection, EOMI Neck: supple, Trachea midline Respiratory/Chest: Decreased breath sounds, scant wheezes, no accessory muscle use Cardiovascular: Irregularly Irregular, No murmur Abdomen/GI:Soft, Non tender, Bowel sounds present Extremities/Musculoskeletal:normal inspection, 1+ B/L LE edema, +Venous stasis Neurologic/Psych:AAO, grossly no focal neurological deficits Skin: normal color, warm Results & Data Results & Data Vital Signs (Past 12 Hours) Vital Signs Temp Pulse Resp BP BP Pulse Ox O2 Del Method 02/27/23 11:42 36.7 C 85 18 132/78 94 Room Air 02/27/23 08:00 Room Air 02/27/23 07:25 36.6 C 95 H 18 134/84 93 Room Air Laboratory Results [facility] 02/27/23 04:34 Sodium 135 L Potassium 4.1 Chloride 102 Carbon Dioxide 25 BUN 41 H Creatinine 1.16 Glucose 110 H Calcium 9.1
[2023-02-27] MEDS: SIMVASTATIN 10 MG TAB PO SCH (21:35)
[2023-02-27] MEDS: SERTRALINE HCL 50 MG TABLET PO SCH (21:36)
[2023-02-28 07:37] LABS: Hematocrit (blood only) 35.9 % (37.0-47.0); Hemoglobin 11.5 g/dl (12.0-16.0); Mean Corpuscular Hemoglobin 31.3 pg (25.0-34.0); Mean Corpuscular Volume 97.6 fL (80.0-100.0); Mean Platelet Volume 10.1 fL (9.4-12.4); Platelet Count 305 K/uL (130-400); RDW Coefficient of Variation 13.8 % (11.5-14.5); RDW Standard Deviation 50.1 fL (36.4-46.3); Red Blood Count 3.68 M/uL (4.20-5.40); White Blood Count 9.93 K/ul (4.8-10.8)
[2023-02-28] MEDS: cefTRIAXone SODIUM 2,000 MG in DEXTROSE 5 % MINI-B 50 ML IV SCH (07:49)
[2023-02-28] MEDS: CHOLECALCIFEROL 1,000 UNITS 25 MCG TAB PO SCH (07:50)
[2023-02-28] MEDS: FUROSEMIDE 20 MG TAB PO SCH (07:50)
[2023-02-28] MEDS: allopurinoL 100 MG TAB PO SCH (07:51)
[2023-02-28] MEDS: CYANOCOBALAMIN (B-12) 500 MCG TABLET PO SCH (07:51)
[2023-02-28] MEDS: SPIRONOLACTONE 12.5 MG TAB PO SCH (07:51)
[2023-02-28] MEDS: ENALAPRIL MALEATE 10 MG TAB PO SCH (07:51)
[2023-02-28] MEDS: MEMANTINE HCL 10 MG TAB PO SCH (07:52)
[2023-02-28] MEDS: METOPROLOL SUCC 50MG EXT REL TAB PO SCH (07:52)
[2023-02-28] MEDS: HEPARIN SOD 5,000 UNIT/0.5 ML VIAL SQ SCH (07:52)
[2023-02-28] MEDS: GABAPENTIN 300 MG CAP PO SCH (07:52)
[2023-02-28 08:04] LABS: Calcium 9.6 mg/dl (8.6-10.3); Creatinine Clr Calc Pharmacy 40.6 ml/min; Est GFR (African American) 53.8 ml/min; Est GFR (Non-African American) 46.4 ml/min; Magnesium 2.1 mg/dl (1.7-2.4); Phosphorus 3.9 mg/dl (2.5-4.9); Potassium 4.2 mmol/L (3.5-5.1)
--- OUTSIDE RECORDS SUMMARY | 2023-02-28 10:04 | External Medical Summary | Summary of Care ---
Demographics Address [address] [place] [address] Mobile Phone Home Phone Email Address Preferred Language Azerbaijani Marital Status Unknown Presybeterian Affiliation Unknown Race White Ethnic Group Not or Lati no Author Name Unknown Organization [facility] Address [address] [place] [address] Phone [phone] Care Team Providers Care Prison Warden Name Role Phone Summer Mckeon MD Primary Care Provide r Reason for Visit * Reason Onset Date Comments [facility] Care Coordination Services 09/11/2022 Encounter Details Date Type Department Care Team Description 09/11/2022 Telephone Care Coordination [address], [place] [id number] [facility]neyman Painter [address], [place] [phone] [facility] Care Coordination Services Allergies Active Allergy Reactions Severity Noted Date Comments Sulfamethoxazole-Trimeth oprim Nausea/vomiting 05/07/2014 syncope Glucosamine Other (Please comment) 02/02/2010 "all my joints hurts" Atorvastatin Calcium 11/03/2000 vomit, lipitor Morphine Nausea/vomiting 02/06/2015 Severe Sulfa Antibiotics 02/12/2016 documented as of this encounter (statuses as of 09/11/2022) Medications Medication Sig Dispensed Refills Start Date End Date Status INCONTINENCE BRIEF LARGE MISCIndications:Stool incontinence one to 2 a day as directed 2 Box 11 02/10/2013 Active ONETOUCH ULTRA BLUE STRP TEST DAILY 100 Strip 5 12/05/2015 Active ONETOUCH DELICA LANCETS FINE MISC FOR TESTING BLOOD SUGAR DAILY 100 Each 5 05/01/2016 Active vitamin b 12 (CYANOCOBALAMIN) 1000 MCG TABS Take 1 Tab by mouth daily. 0 11/25/2016 Active Albuterol Sulfate (PROAIR HFA) 108 (90 Base) MCG/ACT AERSIndications:Bronc hitis, complicated Inhale 2 Puffs by mouth every 4 hours as needed for Wheezing. 1 Inhaler 1 05/17/2019 Active Allopurinol 300 MG Oral Tablet (Zyloprim)Indications :Gouty arthropathy Take 1 Tablet by mouth in the morning. 28 Tablet 09/09/2022 Active D-1000 Extra Strength 25 MCG (1000 UT) Oral Tablet (Cholecalciferol)Johanna cations:Gouty arthropathy Take 1 Tablet by mouth in the morning. 28 Tablet 09/09/2022 Active dilTIAZem HCl ER Beads 120 MG Oral Capsule Extended Release 24 HourIndications:HTN, goal below 150/90 Take 1 Capsule by mouth in the morning and 1 Capsule before bedtime. 56 Capsule 09/09/2022 Active Enalapril Maleate 20 MG Oral Tablet (Vasotec)Indications: Type 2 diabetes mellitus with hemoglobin A1c goal of less than 8.0% (HCC),HTN, goal below 150/90 Take 1 Tablet by mouth in the morning and 1 Tablet before bedtime. 56 Tablet 09/09/2022 Active Gabapentin 300 MG Oral Capsule (Neurontin)Indication s:Late onset Alzheimer's disease without behavioral disturbance (HCC) Take 1 Capsule by mouth in the morning and 1 Capsule before bedtime. 56 Capsule 09/09/2022 Active Memantine HCl 10 MG Oral Tablet (Namenda)Indications: Late onset Alzheimer's disease without behavioral disturbance (HCC) Take 1 Tablet by mouth in the morning and 1 Tablet before bedtime. 56 Tablet 09/09/2022 Active Sertraline HCl 25 MG Oral Tablet (Zoloft)Indications:C urrent moderate episode of major depressive disorder without prior episode (HCC) Take 1 Tablet by mouth every night at bedtime. 28 Tablet 09/09/2022 Active Simvastatin 10 MG Oral Tablet (Zocor)Indications:Dy slipidemia, goal LDL below 100 Take 1 Tablet by mouth every night at bedtime. 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 Restless leg syndrome 08/04/2006 Knee joint replacement status 01/17/2005 GENERAL OSTEOARTHROSIS documented as of this encounter (statuses as of 09/11/2022) Resolved Problems Problem Noted Date Resolved Date Diabetes mellitus with stage 3 chronic kidney di sease 02/28/2020 08/31/2020 Overview: Per CKD protocol Type 2 diabetes mellitus with diabetic polyneuro amandeep 09/01/2018 05/26/2019 Pain of both shoulder joints 02/18/2017 Hypertensive heart disease, benign w/chronic kidney disease stage 1-4 02/18/2017 09/01/2018 Type 2 diabetes mellitus wit h stage 3 chronic kidney disease, without long-term current use of insulin 02/18/201702/19 Overview: Per CKD protocol Dementia 09/16/2014 02/19/2018 Kidney disease, chronic, stage III (GFR 30-59 ml /min) 12/09/2013 10/29/2018 HTN, goal below 140/90 12/09/2013 7 Kidney disease, chronic, stage IV (GFR 15-29 ml/ min) 06/17/2011 12/09/2013 Retention of urine 05/23/2011 02/19/2018 Overview: ICD-10 update of inactive term Anemia in ESRD (end-stage renal disease) 011 02/18/2017 Morbid (severe) obesity due to excess calories 0 07/17/2009 09/01/2018 Overview: Per Obesity Taxonomy ICD-10 update of inactive diagnosis DM type 2 nursing care encounter 02/16/2009 09/01/2018 Overview: Per Diabetes Taxonomy. ICD-10 update of inactive term ADVANCE DIRECTIVE INFORMATION 08/22/2008 Overview: Yes, Copy scanned at patient level in the electronic medical record.(Go to Action, Patient File to view) Patient aware they must notify their healthcare provider of changes. ACTIVE CASE MANAGEMENT 08/22/2008 0 Overview: Hamida Black RN [phone] Kidney disease, chronic, stage III (GFR 30-59 ml /min) 06/03/2007 10/03/2011 Overview: Based on labs dated 12/11/06 Mixed dyslipidemia 12/11/2006 03/28/2009 Overview: Per Lipid Taxonomy. Osteoarthrosis, unspecified whether generalized or localized, lower leg 01/09/2005 02/18/2017 Type 2 diabetes mellitus wit h hemoglobin A1c goal of less than 7.0% 03/10/2002 02/16/2009 Overview: Per Diabetes Taxonomy. ICD-10 update of inactive term Spasm of muscle 11/03/2000 10/10/2015 Osteoarthrosis 11/03/2000 02/18/2017 HYPERTENSION NOS 03/14/2009 Overview: Modified per HTN protocol #16. OBESITY, UNSPECIFIED 07/17/2009 Overview: Per Obesity Taxonomy Memory loss 02/18/2017 documented as of this encounter (statuses as of 09/11/2022) Immunizations Name Administration Dates Next Due Pneumococcal Conjugate Vacc, 13 Valent (Prevnar) 10/10/2015 Seasonal Influenza, Quadriva lent Hd (Fluzone Hd) 02/12/2022 Seasonal Influenza, Quadriva lent, No Preserve, 6 Mons & Above, IM 02/27/2021,02/19/2018,02/18/2017 Seasonal Influenza, Quadriva lent, No Preserve, IM 02/21/2015 Seasonal Influenza, Split, I IV3, With Preserve, Inj 01/20/2016,12/23/2013,01/12/2013,2011,02/04/2011,02/02/2010,01/11/2009,1 ,02/10/2007,01/31/2006 Seasonal Influenza, Trivalen t, Adjuvanted, 65+ yrs 03/29/2019 TD, Preservative Free 09/07/2008 Varicella Zoster Vaccine (Adult) 02/03/2012 documented as of this encounter Social History Tobacco Use Types Packs/Day Years Used Date Smoking Tobacco: Never Smokeless Tobacco: Never Alcohol Use Standard Drinks/Week Comments No 0 (1 standard drink = 0.6 oz pur e alcohol) Sex Assigned at Date Recorded Not on file Job Start Date Occupation Industry Not on file Not on file Not on file documented as of this encounter Miscellaneous Notes * Telephone Encounter - Ronal Whitaker - 09/11/2022 10:43 AM EDT Transferred call to [facility] nurse for assessment Ronal Whitaker documented in this encounter Plan of Treatment Upcoming Encounters Date Type Specialty Care Team Description 02/17/2023 Office Visit Family Medicine Summer Mckeon MD [address] [place] [address] [place] [phone] Health Maintenance Due Date Last Done Comments COVID-19 Vaccine (#1) 04/17/1936 DTaP,Tdap,and Td Vaccines (1 - Tdap) 09/08/2008 09/07/2008 Zoster Vaccines (2 of 3) 03/30/2012 02/03/2012 Albumin/Creatinine Ratio 06/05/2018 018, 05/07/2014, 05/14/2012, Additional history exists Depression Screening, Annual for Pts 12 and Over 03/29/2020 03/29/2019 HbA1c 08/13/2022 02/12/2022, 11/0 12/2020, 03/29/2019, Additional history exists Pneumococcal Vaccine: 65+ Years Completed 10/10/2015, 02/19/2005 Influenza Vaccine (FLU shot) Completed , 02/27/2021, 03/29/2019, Additional history exists GARDASIL-HPV IMMUNIZATION SERIES Aged Out No longer eligible based on patient's age to complete this topic Hepatitis B Aged Out No longer eligi ble based on patient's age to complete this topic MENINGOCOCCAL (MENACTRA/MENVEO) Aged Out No longer eligible based on patient's age to complete this topic documented as of this encounter Medical Devices Not on filedocumented as of this encounter Advance Directives Latest Code Status on File Code Status Date Activated Date Inactivated Comments Full Code 03/20/2012 11:18 AM 03/20/2012 9:10 PM Th is order reflects the patients wishes and were consensually agreed upon. Code Status History Code Status Date Activated Date Inactivated Comments Full Code 06/27/2011 12:11 PM 06/27/2011 5:30 PM This o rder reflects the patients wishes and were consensually agreed upon. Question Answer Comments Discussion of Advance Directives occurred with: Not Discussed Full Code 06/27/2011 9:31 AM 06/27/2011 12:11 PM This o rder reflects the patients wishes and were consensually agreed upon. Question Answer Comments Discussion of Advance Directives occurred with: Not Discussed Care Teams Prison Warden Relationship Specialty Start Date End Date Summer Mckeon MD [address] [place] [address] [place] [phone] PCP - General Family Medicine 09/01/18 documented as of this encounter
--- OUTSIDE RECORDS SUMMARY | 2023-02-28 10:04 | External Medical Summary | Summary of Care ---
Demographics Address [address] [place] [place] [address] Mobile Phone Home Phone Email Address Preferred Language Burundian Marital Status Unknown Congregational Affiliation Unknown Race White Ethnic Group Not or Lati no Author Name Unknown Organization [facility] Address [address] [place] [address] Phone [phone] Care Team Providers Care Core Laying Machine Operator Name Role Phone Summer Mckeon MD Primary Care Provide r Reason for Visit * Reason Onset Date Comments [facility] Care Coordination Services 09/11/2022 Encounter Details Date Type Department Care Team Description 09/11/2022 [facility] Telephone Care Coordination [address], [place] [phone] Kylie Brown, RN [phone] [place] [address] [facility] Care Coordination Services Allergies Active [...] ACTIVE CASE MANAGEMENT 08/22/2008 0 Overview: Hamida Black, RN [phone] Kidney disease, chronic, stage III (GFR 30-59 [...] encounter Miscellaneous Notes * Telephone Encounter - Kylie Brown RN - 09/11/2022 11:39 AM EDT [facility] Feeder Progress Note: Date: 09/11/22 Assigned Patient Tier: 4 Assessment: Did you receive an alert for an annual wellness visit? No Case Management Assessment Is this call for a hospital, assisted or rehab facility discharge to home? No Medication Reconciliation: Medication Reconciliation completed: yes Review of Current goals: Connected with patient via phone. Verified patient name/. Informed patient that call would be recorded for quality and training purposes. Pt. Noted the following: Spoke with daughter, Chantel. Went to ER a bout 4-5 weeks ago. Had COVID. Was very weak and had fever. No current symptoms. Had apt twodays ago for diabetic shoes. Checks blood sugars daily. A1C 6.0 on 02/12/22. Made diet changes. Confusion is getting worse. No behaviors. Daughter states that she can remember what books she read inthe past but forgets what she walks into a room for. Does not like to go out. Fear of falling down steps. Uses walker. Does not want to apply for Waiver Services at this time. Paperwork is too overwhelming. Agrees to [employer] referral for [facility] alert. Does need to run errands without member. No transportation or financial issues. Has living will. Discussed the following patient-centered CM goals with the patient during this discussion: -Diabetes: Patient will have HbA1c test completed in current measurement year -Status: On Track Monitor for results.. -SAFETY: Prevent falls or injuries -Status: On Track Prevent injury. [employer] referral for [facility] alert. CM Plan: Reviewed 3 Red Flags with patient. Advised to call CM with any of the following: Red Flag 1: low/high blood sugars, , Red Flag 2: open areas, or Red Flag 3: falls Plan for Future Contacts: Plan to follow up 11-12 months to check progress goals/needs. Advancement/Closure Plan: Keep patient at current Tier with reassessment per workflow. Patient provided CM contact information and encouraged to call with any changes in condition. SNP Member? Yes Is Provider in agreement with POC? Yes PCP Notified of enrollment in CM/HM program: Yes Is Provider in agreement with POC? Yes Kylie Brown RN SNP Coordinator documented in this encounter Plan of Treatment Upcoming Encounters Date Type Specialty Care Team Description 02/17/2023 Office Visit Family Medicine Summer Mckeon MD [address] [place] [address] [place] [phone] Health Maintenance Due Date Last Done Comments COVID-19 Vaccine (#1) 04/17/1936 DTaP,Tdap,and Td Vaccines (1 - Tdap) 09/08/2008 09/07/2008 Zoster Vaccines (2 of 3) 03/30/2012 02/03/2012 Albumin/Creatinine Ratio 06/05/2018 018, 05/07/2014, 05/14/2012, Additional history exists Depression Screening, Annual for Pts 12 and Over 03/29/2020 03/29/2019 HbA1c 08/13/2022 02/12/2022, 11/12/2020, 03/29/2019, Additional history exists Pneumococcal Vaccine: 65+ [...] Directives occurred with: Not Discussed Care Teams Core Laying Machine Operator Relationship Specialty Start Date End Date Summer Mckeon MD [address] [place] [address] [place] [phone] PCP - General Family Medicine 09/01/18 documented as of this encounter
--- OUTSIDE RECORDS SUMMARY | 2023-02-28 10:04 | External Medical Summary | Summary of Care ---
Demographics Address [address] [place] [address] Mobile Phone Home Phone Email Address Preferred Language Moldovan Marital Status Unknown Mu-Ism Affiliation Unknown Race White Ethnic Group Not or Lati no Author Name Unknown Organization [facility] Address [address] [place] [address] Phone [phone] Care Team Providers Care Touch Up Painter Name Role Phone Summer Mckeon MD Primary Care Provide r Reason for Visit * Reason Comments Re-Check Encounter Details Date Type Department Care Team Description 09/09/2022 Office Visit Family Medicine [address] [phone] Mina Rodriguez MD [address] [place] [address] [place] [address] Late onset Alzheimer's disease without behavioral disturbance (HCC)*; Type 2 diabetes mellitus with hemoglobin A1c goal of less than 8.0% ([facility]); HTN, goal below 150/90; Current moderate episode of major depressive disorder without prior episode (HCC); Dyslipidemia, goal LDL below 100; Type 2 diabetes mellitus with stage 3b chronic kidney disease, without long-term current use of insulin (HCC); Gouty arthropathy Allergies Active Allergy Reactions Severity Noted Date Comments Sulfamethoxazole-Trimeth oprim Nausea/vomiting 05/07/2014 syncope Glucosamine Other (Please comment) 02/02/2010 "all my joints hurts" Atorvastatin Calcium 11/03/2000 vomit, lipitor Morphine Nausea/vomiting 02/06/2015 Severe Sulfa Antibiotics 02/12/2016 documented as of this encounter (statuses as of 09/09/2022) Medications Medication Sig Dispensed Refills Start Date End Date Status INCONTINENCE BRIEF LARGE MISCIndications:St ool incontinence one to 2 a day as directed 2 Box 11 02/10/2013 Active ONETOUCH ULTRA BLUE STRP TEST DAILY 100 Strip 5 12/05/2015 Active ONETOUCH DELARIELA LANCETS FINE MISC FOR TESTING BLOOD SUGAR DAILY 100 Each 5 05/01/2016 Active vitamin b 12 (CYANOCOBALAMIN) 1000 MCG TABS Take 1 Tab by mouth daily. 0 11/25/2016 Active Albuterol Sulfate (PROAIR HFA) 108 (90 Base) MCG/ACT AERSIndications:Br onchitis, complicated Inhale 2 Puffs by mouth every 4 hours as needed for Wheezing. 1 Inhaler 1 05/17/2019 Active Allopurinol 300 MG Oral Tablet (Zyloprim)Indicati ons:Gouty arthropathy Take 1 Tablet by mouth in the morning. 28 Tablet 09/09/2022 Active D-1000 Extra Strength 25 MCG (1000 UT) Oral Tablet (Cholecalciferol)I ndications:Gouty arthropathy Take 1 Tablet by mouth in the morning. 28 Tablet 09/09/2022 Active dilTIAZem HCl ER Beads 120 MG Oral Capsule Extended Release 24 HourIndications:HT N, goal below 150/90 Take 1 Capsule by mouth in the morning and 1 Capsule before bedtime. 56 Capsule 09/09/2022 Active Enalapril Maleate 20 MG Oral Tablet (Vasotec)Indicatio ns:Type 2 diabetes mellitus with hemoglobin A1c goal of less than 8.0% (HCC),HTN, goal below 150/90 Take 1 Tablet by mouth in the morning and 1 Tablet before bedtime. 56 Tablet 09/09/2022 Active Gabapentin 300 MG Oral Capsule (Neurontin)Indicat ions:Late onset Alzheimer's disease without behavioral disturbance (HCC) Take 1 Capsule by mouth in the morning and 1 Capsule before bedtime. 56 Capsule 09/09/2022 Active Memantine HCl 10 MG Oral Tablet (Namenda)Indicatio ns:Late onset Alzheimer's disease without behavioral disturbance (HCC) Take 1 Tablet by mouth in the morning and 1 Tablet before bedtime. 56 Tablet 09/09/2022 Active Sertraline HCl 25 MG Oral Tablet (Zoloft)Indication s:Current moderate episode of major depressive disorder without prior episode (HCC) Take 1 Tablet by mouth every night at bedtime. 28 Tablet 5 09/09/2022 Active Simvastatin 10 MG Oral Tablet (Zocor)Indications :Dyslipidemia, goal LDL below 100 Take 1 Tablet by mouth every night at bedtime. 28 Tablet 5 09/09/2022 Active Memantine HCl 10 MG Oral Tablet (Namenda) TAKE 1 TABLET BY MOUTH TWICE A DAY 56 Tablet 5 04/04/2022 09/09/2022 Discontinue d(Refill) Gabapentin 300 MG Oral Capsule (Neurontin) TAKE 1 CAPSULE BY MOUTH TWICE A DAY 56 Capsule 5 04/04/2022 09/09/2022 Discontinue d(Refill) D-1000 Extra Strength 25 MCG (1000 UT) Oral Tablet (Cholecalciferol) TAKE 1 TABLET BY MOUTH DAILY 28 Tablet 5 04/04/2022 09/09/2022 Discontinue d(Refill) Sertraline HCl 25 MG Oral Tablet (Zoloft)Indication s:Current moderate episode of major depressive disorder without prior episode ([facility]) TAKE 1 TABLET BY MOUTH EVERY NIGHT AT BEDTIME 28 Tablet 5 04/04/2022 09/09/2022 Discontinue d(Refill) Enalapril Maleate 20 MG Oral Tablet (Vasotec)Indicatio ns:Type 2 diabetes mellitus with hemoglobin A1c goal of less than 8.0% ([facility]),HTN, goal below 150/90 TAKE 1 TABLET BY MOUTH TWICE A DAY 56 Tablet 5 04/04/2022 09/09/2022 Discontinue d(Refill) Simvastatin 10 MG Oral Tablet (Zocor)Indications :Dyslipidemia, goal LDL below 100 TAKE 1 TABLET BY MOUTH EVERY NIGHT AT BEDTIME 28 Tablet 5 04/04/2022 09/09/2022 Discontinue d(Refill) dilTIAZem HCl ER Beads 120 MG Oral Capsule Extended Release 24 Hour TAKE 1 CAPSULE BY MOUTH TWICE A DAY 56 Capsule 5 04/04/2022 09/09/2022 Discontinue d(Refill) Allopurinol 300 MG Oral Tablet (Zyloprim) TAKE 1 TABLET BY MOUTH DAILY 28 Tablet 5 04/10/2022 09/09/2022 Discontinue d(Refill) documented as of this encounter (statuses as of 09/09/2022) Active Problems Problem Noted Date Hypertensive kidney [...] as of this encounter (statuses as of 09/09/2022) Resolved Problems Problem Noted Date Resolved Date [...] MANAGEMENT 08/22/2008 0 Overview: Hamida Black, RN [phone] Kidney disease, chronic, stage III (GFR 30-59 [...] as of this encounter (statuses as of 09/09/2022) Immunizations Name Administration Dates Next Due Pneumococcal [...] on file documented as of this encounter Last Filed Vital Signs Vital Sign Reading Time Taken Comments Blood Pressure 139/76 09/09/2022 4:58 PM EDT Pulse 62 09/09/2022 4:58 PM EDT Temperature 36.5 C (97.7 F) 09/09/2022 4:58 PM ED T Respiratory Rate 16 09/09/2022 4:58 PM EDT Oxygen Saturation 97% 09/09/2022 4:58 PM EDT Inhaled Oxygen Concentration - - Weight 87.3 kg (192 lb 8 oz) 09/09/2022 4:58 PM EDT Height 160 cm (5' 3") 09/09/2022 4:58 PM EDT Body Mass Index 34.1 09/09/2022 4:58 PM EDT documented in this encounter Progress Notes * Mina Rodriguez MD - 09/09/2022 5:00 PM EDT Rebecca is here for a recheck on her diabetes and other problems. She has been seeing Dr Rolando rodriguez diabetic shoes have broken down and she needs new ones. She has a history of dementia. She is on medication for that and is pleasant and stable. A bit hard of hearing. She needs labs but the lab is closed. They have a hard time getting here and daughter will be having shoulder surgery soon. Rebecca had a really bad cellulitis of her legs in the past and has chronic stasis changes as a result. She changed her diet and that has helped. Sugars at home have been good. She had Covid in July and declined to take the paxlovid but her fever and dyspnea resolved without incident. She is not Vaxxed. Patient Active Problem List Diagnosis Code GENERAL OSTEOARTHROSIS M15.9 Knee joint replacement status Z96.659 Restless leg syndrome G25.81 DYSLIPIDEMIA, GOAL LDL BELOW 100 E78.5 Gouty arthropathy M10.9 HTN, goal below 150/90 I10 Dementia without behavioral disturbance (HCC) F03.90 Current moderate episode of major depressive disorder without prior episode (HCC) F32.1 Late onset Alzheimer's disease without behavioral disturbance ([facility]) G30.1, F02.80 Type 2 diabetes mellitus with stage 3b chronic kidney disease, without long- term current use ofinsulin ([facility]) E11.22, N18.32 Chronic kidney disease, stage 3b ([facility]) N18.32 Hypertensive kidney disease with stage 3b chronic kidney disease (HCC) I12.9, N18.32 Past Surgical History: Procedure Laterality Date ARTERIOVEN ANAST,OPEN,UPPR ARM 03/20/2012 ARTERIOVENOUS ANASTOMOSIS OPEN UPPER ARM CEPHALIC performed by Samia Garcia MD [place] [facility] [place] KNEE TOTAL 12/31/2004 left CARPAL TUNNEL SURGERY Carpal tunnel release COLONOSCOPY, DIAGNOSTIC (RECTUM) 01/13/2007 repeat in 3-5 years due to prep CTA CHEST NON-CORONARY W CONTRAST 07/26/2022 small hiatal hernia, no PE or intrathoracic problem CYSTOSCOPY 06/04/2011 INSERT CANNULA, ARTERY-VEIN, DIRECTOR OF DIETARY 06/27/2011 ARTERIOVENOUS ANASTOMOSIS OPEN FOREARM VEIN performed by SAMIA GARCIA [place] [facility] [place] SCRE[place]ING-BILATERAL 10/28/2008 scattered fibroglandular densities, category 1 normal PARTIAL HYSTERECTOMY 04/21/1976 Hysterectomy Partial. Pt has one ovary REMOVE CATARACT, INSERT LENS PROSTH 09/22 REMOVE TONSILS & ADENOIDS, UNDER 12 Tonsillectomy/Adenoids,<13 Y/O Past Medical History: Diagnosis Date COVID-19 07/26/2022 DM type 2, goal A1c below 7 Diabetes Type II, Controlled Dyslipidemia, goal LDL below 100 Generalized osteoarthritis of multiple sites HTN, goal below 150/90 Hypertensive kidney disease with stage 3b chronic kidney disease (HCC) Late onset Alzheimer's dementia without behavioral disturbance (HCC) Memory loss Obesity, BMI not known Osteoarthrosis, unspecified whether generalized or localized, lower leg Pain of both shoulder joints 02/18/2017 Restless leg syndrome Review of patient's allergies indicates: Allergen Reactions Bactrim [Sulfamethoxazole-Trimethoprim] Nausea/vomiting syncope Glucosamine Other (Please comment) "all my joints hurts" Lipitor [Atorvastatin Calcium] vomit, lipitor Morphine Nausea/vomiting Severe Sulfa Antibiotics Social History Socioeconomic History Marital status: Spouse name: Not on file Number of children: Not on file Years of education: Not on file Highest education level: Not on file Occupational History Not on file Tobacco Use Smoking status: Never Smokeless tobacco: Never Substance and Sexual Activity Alcohol use: No Drug use: No Sexual activity: Not Currently Other Topics Concern Not on file Social History Narrative Not on file Social Determinants of Health Financial Resource Strain: Not on file Food Insecurity: Not on file Transportation Needs: Not on file Physical Activity: Not on file Stress: Not on file Social Connections: Not on file Intimate Partner Violence: Not on file Housing Stability: Not on file Current Outpatient Medications Medication Sig Dispense Refill INCONTINENCE BRIEF LARGE MISC one to 2 a day as directed 2 Box 11 ONETOUCH ULTRA BLUE STRP TEST DAILY 100 Strip 5 ONETOUCH DELICA LANCETS FINE MISC FOR TESTING BLOOD SUGAR DAILY 100 Each 5 vitamin b 12 (CYANOCOBALAMIN) 1000 MCG TABS Take 1 Tab by mouth daily. Albuterol Sulfate (PROAIR HFA) 108 (90 Base) MCG/ACT AERS Inhale 2 Puffs by mouth every 4 hoursas needed for Wheezing. 1 Inhaler 1 Memantine HCl 10 MG Oral Tablet (Namenda) TAKE 1 TABLET BY MOUTH TWICE A DAY 56 Tablet 5 Gabapentin 300 MG Oral Capsule (Neurontin) TAKE 1 CAPSULE BY MOUTH TWICE A DAY 56 Capsule 5 D-1000 Extra Strength 25 MCG (1000 UT) Oral Tablet (Cholecalciferol) TAKE 1 TABLET BY MOUTH DAILY 28 Tablet 5 Sertraline HCl 25 MG Oral Tablet (Zoloft) TAKE 1 TABLET BY MOUTH EVERY NIGHT AT BEDTIME 28 Tablet 5 Enalapril Maleate 20 MG Oral Tablet (Vasotec) TAKE 1 TABLET BY MOUTH TWICE A DAY 56 Tablet 5 Simvastatin 10 MG Oral Tablet (Zocor) TAKE 1 TABLET BY MOUTH EVERY NIGHT AT BEDTIME 28 Tablet 5 dilTIAZem HCl ER Beads 120 MG Oral Capsule Extended Release 24 Hour TAKE 1 CAPSULE BY MOUTH TWICE A DAY 56 Capsule 5 Allopurinol 300 MG Oral Tablet (Zyloprim) TAKE 1 TABLET BY MOUTH DAILY 28 Tablet 5 No current facility-administered medications for this visit. Immunization History Administered Date(s) Administered Iron Sucrose 03/04/2011 Methylprednisolone 01/26/2008, 07/07/2008 Pneumococcal Conjugate Vacc, 13 Valent (Prevnar) 10/10/2015 Pneumococcal Polysaccharide PPV23 (Pneumovax) 02/19/2005 Seasonal Influenza, Quadrivalent Hd (Fluzone Hd) 02/12/2022 Seasonal Influenza, Quadrivalent, No Preserve, 6 Mons & Above, IM 02/18/2017, 02/19/2018, 02/27/2021 Seasonal Influenza, Quadrivalent, No Preserve, IM 02/21/2015 Seasonal Influenza, Split, IIV3, With Preserve, Inj 02/19/2005, 01/31/2006, 02/10/2007, 01/22/2008, 01/11/2009, 02/02/2010, 02/04/2011, 02/03/2012, 01/12/2013, 12/23/2013, 01/20/2016 Seasonal Influenza, Trivalent, Adjuvanted, 65+ yrs 03/29/2019 TD, Preservative Free 09/07/2008 Varicella Zoster Vaccine (Adult) 02/03/2012 Lab Results Component Value Date/Time HEMOGLOBIN A1C - [facility] 6.0 (H) 02/12/2022 10:18 AM HEMOGLOBIN A1C - [facility] 6.3 (H) 02/27/2021 10:18 AM HEMOGLOBIN A1C - [facility] 6.4 (H) 03/29/2019 12:12 PM HEMOGLOBIN A1C - [facility] 6.4 (H) 09/01/2018 01:58 PM HEMOGLOBIN A1C - [facility] 6.3 (H) 02/19/2018 01:52 PM Results for orders placed or performed in visit on 02/12/22 LIPID PANEL WITH DIRECT LDL IF TG IS HIGH Result Value Ref Range Triglycerides 172 <=174 mg/dL Cholesterol 162 <200 mg/dL HDL Cholesterol 43 (L) >49 mg/dL Non-HDL Cholesterol 119 <=159 mg/dL LDL Cholesterol 85 <=129 mg/dL Results for orders placed or performed in visit on 06/05/17 RENAL FUNCTION PANEL Result Value Ref Range Albumin 4.1 3.8 - 5.0 g/dL Calcium 10.0 8.4 - 10.2 mg/dL CO2 25 22 - 32 mmol/L Chloride 103 98 - 107 mmol/L Creatinine 1.4 (H) 0.5 - 1.0 mg/dL Glucose 107 70 - 120 mg/dL Phosphorus 4.1 2.5 - 4.8 mg/dL Potassium 4.9 3.5 - 5.1 mmol/L Sodium 141 135 - 146 mmol/L BUN 30 (H) 6 - 20 mg/dL Anion Gap 13 7 - 15 mmol/L Estimated Glomerular Filtration Rate 34.5 (L) >60 CBC Results: Results for orders placed or performed in visit on 06/05/17 CBC Result Value Ref Range WBC 7.93 4.00 - 10.80 K/uL RBC 3.48 (L) 3.85 - 5.15 M/uL HGB 10.9 (L) 12.0 - 15.3 g/dL HCT 35.3 (L) 36.0 - 45.2 % MCV 101.4 (H) 81.5 - 97.5 fL MCH 31.3 27.0 - 34.0 pg MCHC 30.9 (L) 32.0 - 36.0 g/dL RDW 13.3 11.5 - 15.5 % PLT 333 140 - 400 K/uL MPV 10.1 6.6 - 11.1 fL O: Blood pressure 139/76, pulse 62, temperature 36.5 C (97.7 F), temperature source Tympanic, resp. rate 16, height 1.6 m (5' 3"), weight 87.3 kg (192 lb 8 oz), SpO2 97 %. General appearance: well developed, well nourished and in no acute distress. Head normocephalic andatraumatic. No facial asymmetry. Eye exam; PEERLA, EOMI. No scleral icterus or nystagmus. Conjunctiva are pink and not injected. Oropharynx: no exudate, no pharyngeal inflammation or post nasal drip.The palate is free of lesions and the uvula is normal. Trachea is in the midline. Neck supple with no adenopathy or thyromegaly. No carotid bruits. Chest expands equally and is symmetrical with normal AP diameter. Lungs clear, with no wheezes, rales, or rhonchi. Heart: S1 and S2 normal. PMI not obviously displaced. Heart regular, no murmurs, gallops, clicks or rubs. No CVA tenderness. She has some chronic stasis changes of her lower legs without skin breakdown or ulcerations. She has foot deformities. She has borderline protective sensation. A: Late onset Alzheimer's disease without behavioral disturbance ([facility]) (Primary) - Gabapentin 300 MG Oral Capsule (Neurontin); Take 1 Capsule by mouth in the morning and 1 Capsule before bedtime. - Memantine HCl 10 MG Oral Tablet (Namenda); Take 1 Tablet by mouth in the morning and 1 Tablet before bedtime. Type 2 diabetes mellitus with hemoglobin A1c goal of less than 8.0% ([facility]) - Enalapril Maleate 20 MG Oral Tablet (Vasotec); Take 1 Tablet by mouth in the morning and 1 Tabletbefore bedtime. HTN, goal below 150/90 - dilTIAZem HCl ER Beads 120 MG Oral Capsule Extended Release 24 Hour; Take 1 Capsule by mouth in the morning and 1 Capsule before bedtime. - Enalapril Maleate 20 MG Oral Tablet (Vasotec); Take 1 Tablet by mouth in the morning and 1 Tabletbefore bedtime. Current moderate episode of major depressive disorder without prior episode ([facility]) - Sertraline HCl 25 MG Oral Tablet (Zoloft); Take 1 Tablet by mouth every night at bedtime. Dyslipidemia, goal LDL below 100 - Simvastatin 10 MG Oral Tablet (Zocor); Take 1 Tablet by mouth every night at bedtime. Type 2 diabetes mellitus with stage 3b chronic kidney disease, without long-term current use of insulin ([facility]) Gouty arthropathy - Allopurinol 300 MG Oral Tablet (Zyloprim); Take 1 Tablet by mouth in the morning. - D-1000 Extra Strength 25 MCG (1000 UT) Oral Tablet (Cholecalciferol); Take 1 Tablet by mouth in the morning. Form for the diabetic foot wear filled out. Follow Up: Return for Clinic Visit. | For: Clinic Visit | Check-out note: Keep January appt documented in this encounter Nursing Notes * Ade Casper LPN - 09/09/2022 4:58 PM EDT Pt here for check up No concerns noted documented in this encounter Plan of Treatment Upcoming Encounters Date Type Specialty Care Team Description 02/17/2023 Office Visit Family Medicine Summer Mckeon MD [address] [place] [address] [address] [place] [phone] Health Maintenance Due Date [...] Not on filedocumented as of this encounter Visit Diagnoses Diagnosis Late onset Alzheimer's disease without behavioral disturbance (HCC)- Primary Type 2 diabetes mellitus with hemoglobin A1c goal of less than 8.0% (HCC) HTN, goal below 150/90 Current moderate episode of major depressive disorder without prior episode (HCC) Dyslipidemia, goal LDL below 100 Other and unspecified hyperlipidemia Type 2 diabetes mellitus with stage 3b chronic kidney disease, without long-term current use of insulin (HCC) Gouty arthropathy Gouty arthropathy, unspecified documented in this encounter Advance Directives Latest Code Status [...] Directives occurred with: Not Discussed Care Teams Touch Up Painter Relationship Specialty Start Date End Date Summer Mckeon MD [address] [place] [address] [place] [id number] PCP - General Family Medicine 09/01/18 documented as of this encounter
--- OUTSIDE RECORDS SUMMARY | 2023-02-28 10:04 | External Medical Summary | Summary of Care ---
Demographics Address [address] [place] [place] [address] Mobile Phone Home Phone Email Address Preferred Language Danish Marital Status Unknown Alevism Affiliation Unknown Race White Ethnic Group Not or Lati no Author Name Unknown Organization [facility] Address [address] [place] [address] Phone [phone] Care Team Providers Care Masseur/Masseuse Name Role Phone Summer Mckeon MD Primary Care Provide r Encounter Details Date Type Department Care Team Description 10/19/2022 Result Scan Unspecified Department <No scans attached> Allergies Active Allergy Reactions Severity Noted Date Comments Sulfamethoxazole-Trimeth oprim Nausea/vomiting 05/07/2014 syncope Glucosamine Other (Please comment) 02/02/2010 "all my joints hurts" Atorvastatin Calcium 11/03/2000 vomit, lipitor Morphine Nausea/vomiting 02/06/2015 Severe Sulfa Antibiotics 02/12/2016 documented as of this encounter (statuses as of 10/23/2022) Medications Medication Sig Dispensed Refills Start Date [...] as of this encounter (statuses as of 10/23/2022) Active Problems Problem Noted Date Hypertensive kidney [...] as of this encounter (statuses as of 10/23/2022) Resolved Problems Problem Noted Date Resolved Date [...] MANAGEMENT 08/22/2008 0 Overview: Hamida Black RN [phone] Kidney disease, chronic, stage III (GFR 30-59 [...] as of this encounter (statuses as of 10/23/2022) Immunizations Name Administration Dates Next Due Pneumococcal [...] on file documented as of this encounter Plan of Treatment Upcoming Encounters Date Type Specialty Care Team Description 02/17/2023 Office Visit Family Medicine Linda, Summer Radford MD [address] [place] [address] [place] [phone] Health Maintenance Due Date Last Done Comments COVID-19 Vaccine (#1) 04/17/1936 DTaP,Tdap,and Td Vaccines (1 - Tdap) 09/08/2008 09/07/2008 Zoster Vaccines (2 of 3) 03/30/2012 02/03/2012 Albumin/Creatinine Ratio 06/05/2018 018, 05/07/2014, 05/14/2012, Additional history exists Depression Screening, Annual for Pts 12 and Over 03/29/2020 03/29/2019 HbA1c 08/13/2022 02/12/2022, 11/0 12/2020, 03/29/2019, Additional history exists Influenza Vaccine (FLU shot) (#1) 2022 02/12/2022, 02/27/2021, 03/29/2019, Additional history exists Pneumococcal Vaccine: 65+ Years Completed 10/10/2015, 02/19/2005 GARDASIL-HPV IMMUNIZATION SERIES Aged Out No longer eligible based on patient's age to complete this topic Hepatitis B Aged Out No longer eligi ble based on patient's age to complete this topic MENINGOCOCCAL (MENACTRA/MENVEO) Aged Out No longer eligible based on patient's age to complete this topic documented as of this encounter Medical Devices Not on filedocumented as of this encounter Procedures Procedure Name Priority Date/Time Associated Diagnosis Comments RADIOLOGY SCANNED RESULT 10/19/2022 RADIOLOGY SCANNED RESULT 10/19/2022 documented in this encounter Results * RADIOLOGY SCANNED RESULT (10/19/2022) 10/19/2022 No Physician Data Unknown DIAGNOSTIC RAD IOLOGY SERVICES * RADIOLOGY SCANNED RESULT (10/19/2022) 10/19/2022 No Physician Data Unknown DIAGNOSTIC RAD IOLOGY SERVICES documented in this encounter Advance Directives Latest [...] Directives occurred with: Not Discussed Care Teams Masseur/Masseuse Relationship Specialty Start Date End Date Summer Mckeon MD [address] [place] [address] [place] [id number] PCP - General Family Medicine 09/01/18 documented as of this encounter
--- OUTSIDE RECORDS SUMMARY | 2023-02-28 10:04 | External Medical Summary | Summary of Care ---
Demographics Address [address] [place] [address] Mobile Phone Home Phone Email Address Preferred Language Greenlandic Marital Status Unknown Christian Affiliation Unknown Race White Ethnic Group Not or Lati no Author Name Unknown Organization [facility] Address [address] [place] [address] Phone [phone] Care Team Providers Care Engineer Of System Development Name Role Phone Summer Mckeon MD Primary Care Provide r Encounter Details Date Type Department Care Team Description 09/13/2022 Telephone Care Coordination [address], [place] [id number] Kathy Obrien, KETTY Allergies Active Allergy Reactions Severity Noted Date Comments Sulfamethoxazole-Trimeth oprim Nausea/vomiting 05/07/2014 syncope Glucosamine Other (Please comment) 02/02/2010 "all my joints hurts" Atorvastatin Calcium 11/03/2000 vomit, lipitor Morphine Nausea/vomiting 02/06/2015 Severe Sulfa Antibiotics 02/12/2016 documented as of this encounter (statuses as of 09/13/2022) Medications Medication Sig Dispensed Refills Start Date [...] as of this encounter (statuses as of 09/13/2022) Active Problems Problem Noted Date Hypertensive kidney [...] as of this encounter (statuses as of 09/13/2022) Resolved Problems Problem Noted Date Resolved Date [...] MANAGEMENT 08/22/2008 0 Overview: Hamida Black, RN [phone] Kidney disease, chronic, stage III (GFR 30-59 [...] as of this encounter (statuses as of 09/13/2022) Immunizations Name Administration Dates Next Due Pneumococcal [...] encounter Miscellaneous Notes * Telephone Encounter - KETTY Ly - 09/13/2022 9:36 AM EDT COSTUME SPECIALIST REFERRAL: Please contact daughterChantel (POA) for PINEDA alert. Thank you. COSTUME SPECIALIST NOTE: Called Patients Daughter, I went over STAAR alert application and i successfully faxed it. She had no further COSTUME SPECIALIST needs at this time. documented in this encounter Plan of Treatment Upcoming Encounters Date Type Specialty Care Team Description 02/17/2023 Office Visit Family Medicine Summer Mckeon MD [address] [place] [address] [place] [id number] Health Maintenance Due Date Last Done Comments COVID-19 Vaccine (#1) 04/17/1936 DTaP,Tdap,and Td Vaccines (1 - Tdap) 09/08/2008 09/07/2008 Zoster Vaccines (2 of 3) 03/30/2012 02/03/2012 Albumin/Creatinine Ratio 06/05/2018 018, 05/07/2014, 05/14/2012, Additional history exists Depression Screening, Annual for Pts 12 and Over 03/29/2020 03/29/2019 HbA1c 08/13/2022 02/12/2022, 12/2020, 03/29/2019, Additional history exists Pneumococcal Vaccine: [...] Directives occurred with: Not Discussed Care Teams Engineer Of System Development Relationship Specialty Start Date End Date Summer Mckeon MD [address] [place] [address] [place] [phone] PCP - General Family Medicine 09/01/18 documented as of this encounter
--- OUTSIDE RECORDS SUMMARY | 2023-02-28 10:04 | External Medical Summary | Summary of Care ---
Demographics Address [address] [place] [address] Mobile Phone Home Phone Email Address Preferred Language Citizen Of [place] Marital Status Unknown Yazidi Affiliation Unknown Race White Ethnic Group Not or Lati no Author Name Unknown Organization [facility] Address [address] [place] [address] Phone [phone] Care Team Providers Care Batter Out Name Role Phone Summer Mckeon MD Primary Care Provide r Reason for Visit * Reason Onset Date Comments Appointment 08/05/2022 Encounter Details Date Type Department Care Team Description 08/05/2022 Telephone Family Medicine [address] [phone] Summer Mckeon MD [address] [place] [address] [place] [address] Appointment Allergies Active Allergy Reactions Severity Noted Date Comments Sulfamethoxazole-Trimeth oprim Nausea/vomiting 05/07/2014 syncope Glucosamine Other (Please comment) 02/02/2010 "all my joints hurts" Atorvastatin Calcium 11/03/2000 vomit, lipitor Morphine Nausea/vomiting 02/06/2015 Severe Sulfa Antibiotics 02/12/2016 documented as of this encounter (statuses as of 09/17/2022) Medications Medication Sig Dispensed Refills Start Date [...] for Wheezing. 1 Inhaler 1 05/17/2019 Active Memantine HCl 10 MG Oral Tablet [...] of major depressive disorder without prior episode ([facility]) TAKE 1 TABLET BY MOUTH EVERY NIGHT AT BEDTIME 28 Tablet 5 04/04/2022 09/09/2022 Discontinue d(Refill) Enalapril Maleate 20 MG Oral Tablet (Vasotec)Indicatio ns:Type 2 diabetes mellitus with hemoglobin A1c goal of less than 8.0% ([facility]),HTN, goal below 150/90 TAKE 1 TABLET BY [...] as of this encounter (statuses as of 09/17/2022) Active Problems Problem Noted Date Hypertensive kidney [...] as of this encounter (statuses as of 09/17/2022) Resolved Problems Problem Noted Date Resolved Date [...] MANAGEMENT 08/22/2008 0 Overview: Hamida Black RN [phone] Kidney disease, chronic, stage III (GFR 30-59 [...] as of this encounter (statuses as of 09/17/2022) Immunizations Name Administration Dates Next Due Pneumococcal [...] encounter Miscellaneous Notes * Telephone Encounter - Sydney Dawson RN - 09/17/2022 1:30 PM EDT Faxed note and labs * Telephone Encounter - KETTY Pantoja - 09/17/2022 12:29 PM EDT Need to be re-faxed with date on or after visit notes * Telephone Encounter - KETTY Toscano - 08/06/2022 11:53 AM EDT I spoke to patient's daughter to schedule appt, and daughter said they already got her shoes, they just need to go pick them up. Pt has been sick, so they haven't made it yet to hand picker. * Telephone Encounter - Sydney Dawson RN - 08/06/2022 10:53 AM EDT Pt will need to schedule an appt to be seen by a Provider, not a PA. Last seen by Sarah 01/2022 Please call pt to set up an appt with a Doctor, We need this for her diabetic foot care/shoes * Telephone Encounter - Kathy Summers LPN - 08/06/2022 10:50 AM EDT Attempted to call- Notes were faxed yesterday. Please transfer patient when they return call to [facility] Triage # [phone] Thank you! * Telephone Encounter - KETTY Pantoja - 08/06/2022 10:30 AM EDT Needs note signed by Dr Mckeon, requesting to speak to nurse * Telephone Encounter - Kathy Summers LPN - 08/05/2022 2:36 PM EDT Faxed. Note is from 02/12/22 & not related to diabetic foot care. * Telephone Encounter - KETTY Jean Baptiste - 08/05/2022 2:28 PM EDT Ingris from [facility] calling for Last office Notes and labs to be faxe to [phone] documented in this encounter Plan of Treatment Upcoming Encounters Date Type Specialty Care Team Description 02/17/2023 Office Visit Family Medicine Linda, Summer Radford MD [address] [place] [address] [place] [phone] Health Maintenance Due Date Last Done Comments [...] Directives occurred with: Not Discussed Care Teams Batter Out Relationship Specialty Start Date End Date Summer Mckeon MD [address] [place] [address] [place] [id number] PCP - General Family Medicine 09/01/18 documented as of this encounter
--- NOTE | 2023-02-28 11:01 | Hospitalist Progress Note ---
Date of Service February 28, 2023 Assessment & Plan (1) Fall: (2) Generalized weakness: (3) UTI (urinary tract infection): (4) New onset atrial fibrillation: (5) Elevated troponin: (6) HTN (hypertension): (7) Depression: (8) RLS (restless legs syndrome): (9) Alzheimer's dementia: (10) CKD (chronic kidney disease), stage III: (11) Diabetes mellitus type 2, diet-controlled: (12) Dyslipidemia: Plan Patient is 87-year-old female with PMH of type 2 diabetes, dyslipidemia, hypertension, stage III CKD, RLS, Alzheimer's disease, depression and other medical problems listed below who presents after fall at home last evening and pain in right leg and was found to have a UTI and new onset atrial fibrillation. New onset atrial fibrillation -- ECHO: Left ventricle is normal in size. Moderate concentric LVH. Septal motion is consistent with conduction abnormality. No regional wall motion abnormality. EF 50 to 55%. Left atrium is severely dilated. Right atrium is mildly dilated. Aortic valve sclerosis mild, without significant aortic valvular stenosis. Moderate mitral regurgitation. -- Normal TSH -- IV diltiazem discontinued -- IV heparin discontinued Patient poor candidate for long-term anticoagulation IV Lopressor as needed Appreciate cardiology input Needs follow-up with cardiology upon discharge Metoprolol increased to 50 mg twice daily home diltiazem stopped Volume overload - resolved Likely secondary to A-fib RVR, IV fluids --CXR:Cardiomegaly with questionable mild pulmonary congestion. New right lower lung airspace opacity likely reflects atelectasis, less likely pneumonia or aspiration. Monitor volume status closely Nebs as needed Received IV Lasix Started on p.o. Lasix 20 mg daily, Aldactone 12.5 mg daily Volume status improved Continue lasix 20 daily, recommend aldactone 12.5 MWF - and cont. to monitor volume status after discharge. Recommend BMP within 1 week. Delirium Reorient frequently Delirium precautions Troponin elevation Demand ischemia secondary to above UTI Urine culture growing E. coli, alpha strep not Enterococcus Blood cultures: Negative to date Continue Rocephin Day #6 - will discharge on PO abx Generalized weakness Fall R foot pain Denies head trauma CT head, CT cervical spine, R foot XR, Tib/fib XR without acute abnormality PT/OT, fall precautions, PRN Tylenol HTN Continue Enalapril,Metoprolol Monitor Depression Continue sertraline CKD III Baseline Cr ~1.3 Monitor DM II Diet controlled Monitor BGs No tight glycemic management needed given advanced age Will consider starting insulin sliding scale if needed Alzheimer's disease A&O to person and place at baseline, lives with daughter. Continue Memantine HLD Continue statin DVT Px: SQ heparin Code status: DNR/DNI Disposition Rehab /snf Admission and Anticipated Discharge Date Admission Date: February 22, 2023 Subjective Patient seen and examined at bedside Sitting up in bed in NAD Denies any cough, worked with spirometer Feels well overall, no difficulty with urination Saturating well on room air No fever, chills, chest pain or shortness of breath Plan to DC to rehab/snf Review of Systems Review of Systems: All systems reviewed & are unremarkable except as noted in Subjective Physical Exam Physical Exam: General Appearance: Obese elderly F , no apparent distress Head: normocephalic, Atraumatic Eyes: normal inspection, EOMI Neck: supple, Trachea midline Respiratory/Chest: Decreased breath sounds, CTAB, no wheezing or rhonchi, no accessory muscle use Cardiovascular: Irregularly Irregular, No murmur Abdomen/GI:Soft, Non tender, Bowel sounds present Extremities/Musculoskeletal:normal inspection, trace B/L LE edema, +Venous stasis Neurologic/Psych:AAO, grossly no focal neurological deficits Skin: normal color, warm Results & Data Results & Data Vital Signs (Past 12 Hours) Vital Signs Temp Pulse Resp BP BP Pulse Ox O2 Del Method 02/28/23 08:00 Room Air 02/28/23 07:25 36.4 C L 102 H 18 117/77 97 Room Air 02/28/23 03:45 36.7 C 93 H 20 121/89 91 Room Air 02/27/23 23:05 36.7 C 94 H 20 127/84 96 Room Air Laboratory Results 02/28/23 Range/Units 07:04 WBC 9.93 (4.8-10.8) K/ul RBC 3.68 L (4.20-5.40) M/uL Hgb 11.5 L (12.0-16.0) g/dl Hct 35.9 L (37.0-47.0) % MCV 97.6 (80.0-100.0) fL MCH 31.3 (25.0-34.0) pg MCHC 32.0 (32.0-36.0) g/dL RDW Std Deviation 50.1 H (36.4-46.3) fL RDW Coeff of Kylee 13.8 (11.5-14.5) % Plt Count 305 (130-400) K/uL MPV 10.1 (9.4-12.4) fL Sodium 136 (136-145) mmol/L Potassium 4.2 (3.5-5.1) mmol/L Chloride 101 (98-107) mmol/L Carbon Dioxide 28 (21-32) mmol/L Anion Gap 7 (3-11) BUN 40 H (6-23) mg/dl Creatinine 1.08 (0.6-1.2) mg/dl Est Cr Clr Drug Dosing 40.6 ml/min Est GFR ( Amer) 53.8 ml/min Est GFR (Non-Af Amer) 46.4 ml/min BUN/Creatinine Ratio 37.0 H (10-20) Glucose 114 H (70-99(Fasting)) mg/dl Calcium 9.6 (8.6-10.3) mg/dl Phosphorus 3.9 (2.5-4.9) mg/dl Magnesium 2.1 (1.7-2.4) mg/dl Medications Administered Current Inpatient Medications Acetaminophen (Acetaminophen 325 Mg Tab) 650 mg PO Q4H PRN PRN Reason: Pain or Fever Stop: 03/24/23 15:05 Last Admin: 02/27/23 17:31 Dose: 650 mg Allopurinol (Allopurinol 100 Mg Tab) 100 mg PO [facility] Stop: 03/25/23 08:59 Last Admin: 02/28/23 07:51 Dose: 100 mg Cyanocobalamin (Cyanocobalamin (B-12) 500 Mcg Tablet) [facility] Stop: 03/25/23 08:59 Last Admin: 02/28/23 07:51 Dose: 1,000 mcg Enalapril Maleate (Enalapril Maleate 10 Mg Tab) 20 mg PO BID [facility] Stop: 03/24/23 20:59 Last Admin: 02/28/23 07:51 Dose: 20 mg Furosemide (Furosemide 20 Mg Tab) 20 mg PO [facility] Stop: 03/27/23 13:59 Last Admin: 02/28/23 07:50 Dose: 20 mg Gabapentin (Gabapentin 300 Mg Cap) 300 mg PO BID [facility] Stop: 03/24/23 20:59 Last Admin: 02/28/23 07:52 Dose: 300 mg Heparin Sodium (Porcine) (Heparin Sod 5,000 Unit/0.5 Ml Vial) 5,000 units SQ Q12 [facility] Stop: 03/28/23 20:59 Last Admin: 02/28/23 07:52 Dose: 5,000 units Ceftriaxone Sodium 2,000 mg/ (Dextrose) 50 mls @ 100 mls/hr IV Q24H [facility] Stop: 03/03/23 07:59 Last Infusion: 02/28/23 08:19 Dose: Infused Levalbuterol HCl (Levalbuterol Hcl 0.63 Mg/3 Ml Neb) 0.63 mg NEB Q6R PRN; Protocol PRN Reason: Shortness Of Breath Or Wheezing Stop: 03/25/23 12:59 Last Admin: 02/25/23 08:50 Dose: 0.63 mg Melatonin (Melatonin 3 Mg Tab) 3 mg PO HS PRN PRN Reason: Sleep Stop: 03/26/23 08:12 Memantine (Memantine Hcl 10 Mg Tab) 10 mg PO BID [facility] Stop: 03/24/23 20:59 Last Admin: 02/28/23 07:52 Dose: 10 mg Metoprolol Succinate (Metoprolol Succ 50mg Ext Rel Tab) 50 mg PO BID [facility] Stop: 03/27/23 20:59 Last Admin: 02/28/23 07:52 Dose: 50 mg Metoprolol Tartrate (Metoprolol Tartrate 1 Mg/Ml Vial) 2.5 mg IV Q6 PRN PRN Reason: Tachycardia HR>110 Stop: 03/26/23 17:59 Olanzapine (Olanzapine 10 Mg/2.1 Ml Sdv) 2.5 mg IM Q4H PRN PRN Reason: Agitation Stop: 03/26/23 01:36 Ondansetron HCl (Ondansetron Inj 2 Mg/Ml 2 Ml Vial) 4 mg IV Q6H PRN PRN Reason: Nausea Stop: 03/24/23 15:05 Polyethylene Glycol (Polyethylene (Miralax) 17 Gm Pack) 17 gm PO DAILY PRN PRN Reason: Constipation Stop: 03/24/23 15:05 Sertraline HCl (Sertraline Hcl 50 Mg Tablet) 25 mg PO HS [facility] Stop: 03/24/23 20:59 Last Admin: 02/27/23 21:36 Dose: 25 mg Simvastatin (Simvastatin 10 Mg Tab) 10 mg PO [facility] Stop: 03/24/23 20:59 Last Admin: 02/27/23 21:35 Dose: 10 mg Spironolactone (Spironolactone 12.5 Mg Tab) 12.5 mg PO DAILY [facility] Stop: 03/27/23 13:59 Last Admin: 02/28/23 07:51 Dose: 12.5 mg Vitamin D (Cholecalciferol 1,000 Units 25 Mcg Tab) 1,000 units PO [facility] Stop: 03/25/23 08:59 Last Admin: 02/28/23 07:50 Dose: 1,000 units
--- NOTE | 2023-02-28 14:10 | Discharge Summary ---
Date of Service February 28, 2023 Admission HPI Per Admitting Provider This is a 87-year-old female with PMH of type 2 diabetes, dyslipidemia, hypertension, stage III CKD, RLS, Alzheimer's disease, depression and other medical problems listed below who presents after fall at home last evening and pain in right leg. History primarily obtained from family at bedside as patient has dementia. Family has noted increased weakness over the past few days and she has been sleeping significantly more than previous. At baseline able to complete ADLs and help with dishes but over the past few days patient much more lethargic. Reportedly yesterday morning patient slid off her bed and was helped off of the ground by family and spent the rest of the day sleeping on the cough with family around in mobile home. Fell ambulating out of bathroom and was found sitting with her R leg tucked under her. Was helped back to bed by family. When she woke up today, she could not bear weight on RLE and was brought in for further evaluation. No recent issues with appetite. No dysuria or more frequent urination. No recent known illness. + increased SOB and swelling in lower extremities. Denies any current pain. No F/C, lightheadedness, CP, palpitations, N/V, abdominal pain, dysuria or changes to bowel habits. Ambulates with a walker at baseline and lives in a mobile home with her daughter. Admission Exam Per Admitting Provider GENERAL: Alert and oriented x3. NAD, on RA. HEENT: No pallor, no icterus. Pupils equal, round and reactive to light. Oral mucosa moist. NECK: No JVD, no neck masses. HEART: S1 and S2 heard. irregular rate and rhythm. HR in 90s. No murmur, no gallop. RESPIRATORY SYSTEM: Normal AP diameter. No accessory muscle use. No wheezing, occ b/l crackles. decreased bb breath sounds ABDOMEN: Soft, bowel sounds present, nontender, no distention. CENTRAL NERVOUS SYSTEM: No facial droop. Speech is clear. Obeys simple commands. Moves extremities. EXTREMITIES: 1-2 + edema, dorsal forefoot soft tissue swelling/tenderness noted. BLE chronic skin changes noted. Principal Diagnosis UTI Fall New onset of Afib Discharge Exam General Appearance: Obese elderly F , no apparent distress, on RA Head: normocephalic, Atraumatic Eyes: normal inspection, EOMI Neck: supple, Trachea midline Respiratory/Chest: Decreased breath sounds, CTAB, no wheezing or rhonchi, no accessory muscle use Cardiovascular: Irregularly Irregular, No murmur Abdomen/GI:Soft, Non tender, Bowel sounds present Extremities/Musculoskeletal:normal inspection, trace B/L LE edema, +Venous stasis Neurologic/Psych:AAO, grossly no focal neurological deficits Skin: normal color, warm Discharge Data Allergies Allergy/AdvReac Type Severity Reaction Status Date / Time morphine Allergy Mild Vomiting Unverified 03/05/16 15:06 atorvastatin Allergy Unknown SICK TO Verified 03/05/16 15:06 STOMACH glucosamine Allergy Unknown JOINTS GOT Verified 03/05/16 15:06 WORSE Sulfa (Sulfonamide AdvReac Severe dizzy, Unverified 03/05/16 15:06 Antibiotics) shaky, "mind was completely off" Consultations 02/22/23 14:17 ED Decision to Admit Stat 02/22/23 14:51 Consult Cardiology Routine Ordered Studies 02/22/23 11:38 CT cervical spine wo con Stat FINDINGS: No acute fractures or subluxations are identified. Degenerative changes are seen in the visualized spine. The alignment is normal. Moderate bilateral pleural effusions are seen. There is a groundglass opacity in the left upper lobe. There are a few scattered nodules measuring up to 3 mm. IMPRESSION: 1. Degenerative changes without evidence of acute bony injury. 2. Moderate bilateral pleural effusions. CT head/brain wo con Stat Findings: Areas of decreased attenuation are present in the periventricular and subcortical white matter bilaterally consistent with small vessel ischemic disease. Generalized cerebral atrophy with commensurate enlargement of the ventricles, sulci, and cisterns is also present. There is no acute intracranial hemorrhage or evidence of acute territorial infarction. No shift of the midline structures, mass effect, or extra-axial abnormalities are shown. Atherosclerotic calcifications are present in the intracranial segments of the internal carotid arteries. Imaged portions of the paranasal sinuses and mastoid air cells are clear. The orbits appear normal. There are no acute fractures of the calvaria or scalp swelling. Impression: No acute intracranial hemorrhage, no evidence of acute territorial infarction or other acute intracranial disease process. Hospital Course (1) Fall: (2) Generalized weakness: (3) UTI (urinary tract infection): (4) New onset atrial fibrillation: (5) Elevated troponin: (6) HTN (hypertension): (7) Depression: (8) RLS (restless legs syndrome): (9) Alzheimer's dementia: (10) CKD (chronic kidney disease), stage III: (11) Diabetes mellitus type 2, diet-controlled: (12) Dyslipidemia: Plan Patient is 87-year-old female with PMH of type 2 diabetes, dyslipidemia, hypertension, stage III CKD, RLS, Alzheimer's disease, depression and other medical problems listed below who presents after fall at home last evening and pain in right leg and was found to have a UTI and new onset atrial fibrillation. New onset atrial fibrillation -- ECHO: Left ventricle is normal in size. Moderate concentric LVH. Septal motion is consistent with conduction abnormality. No regional wall motion abnormality. EF 50 to 55%. Left atrium is severely dilated. Right atrium is mildly dilated. Aortic valve sclerosis mild, without significant aortic valvular stenosis. Moderate mitral regurgitation. -- Normal TSH -- IV diltiazem discontinued -- IV heparin discontinued Patient poor candidate for long-term anticoagulation IV Lopressor as needed Appreciate cardiology input Needs follow-up with cardiology upon discharge Metoprolol increased to 50 mg twice daily home diltiazem stopped Volume overload - resolved Likely secondary to A-fib RVR, IV fluids --CXR:Cardiomegaly with questionable mild pulmonary congestion. New right lower lung airspace opacity likely reflects atelectasis, less likely pneumonia or aspiration. Monitor volume status closely Nebs as needed Received IV Lasix Started on p.o. Lasix 20 mg daily, Aldactone 12.5 mg daily Volume status improved Continue lasix 20 daily, recommend aldactone 12.5 MWF - and cont. to monitor volume status after discharge. Recommend BMP within 1 week. Delirium Reorient frequently Delirium precautions Troponin elevation Demand ischemia secondary to above UTI Urine culture growing E. coli, alpha strep not Enterococcus Blood cultures: Negative to date Continue Rocephin Day #6 - will discharge on PO abx Generalized weakness Fall R foot pain Denies head trauma CT head, CT cervical spine, R foot XR, Tib/fib XR without acute abnormality PT/OT, fall precautions, PRN Tylenol HTN Continue Enalapril,Metoprolol Monitor Depression Continue sertraline CKD III Baseline Cr ~1.3 Monitor DM II Diet controlled Monitor BGs No tight glycemic management needed given advanced age Will consider starting insulin sliding scale if needed Alzheimer's disease A&O to person and place at baseline, lives with daughter. Continue Memantine HLD Continue statin Total Time Total Time Spent Total Time Spent (In Minutes): 40 Discharge Plan Discharge Items Patient Disposition: Transfer Alf Fac Reason For Visit: FALL,GENERALIZED WEAKNESS,NEW ONSET AFIB Discharge Diagnosis: UTI Fall New onset of Afib Activity: Per Instructions section Non-emergency contact: Primary Care Provider and Channel Installer Call non-emergency contact if: you have any medication questions and your symptoms worsen Follow-up/Referrals: Summer Mckeon MD [Primary Care Provider] - Diet: Carb Consistent or DM2 and Heart Healthy Diet Texture: Easy to Chew Addtl Attending Provider Instructions: Follow up with primary care physician within 1 week. Finish antibiotic treatment with cefuroxime as prescribed. Stop taking diltiazem. Instead, take metoprolol succinate 50 mg twice a day. Follow up with cardiology. It was also recommended that you take diuretic - take furosemide 20 mg daily and spironolactone 12.5 mg MWF. Monitor fluid status. Have blood work done - BMP within 1 week. Pending Studies at Discharge: Yes Studies:: final blood cultx Stand-Alone Forms: My [facility] Skilled Items Patient informed of condition?: Yes DNR: Yes Discharge Level of Care: Skilled Communicable Disease: No Discharge Prognosis: Stable Lines: None Urinary Catheter: No Medications and DC Order Prescriptions: New metoprolol succinate 50 mg Tablet Extended Release 24 Hr 50 mg PO BID Qty: 60 0RF spironolactone 25 mg Tablet 12.5 mg PO .MWF Qty: 14 0RF furosemide 20 mg Tablet 20 mg PO QAM Qty: 30 0RF cefuroxime axetil 250 mg tablet 250 mg PO BID 3 Days Qty: 6 0RF Continued allopurinol 100 mg Tablet 100 mg PO QAM Qty: 0 enalapril maleate 20 mg tablet 20 mg PO BID simvastatin 10 mg tablet 10 mg PO HS cyanocobalamin (vitamin B-12) [Vitamin B-12] 1,000 mcg Tablet 1,000 mcg PO QAM acetaminophen 500 mg Tablet 500 mg PO Q6H PRN (Reason: PAIN/FEVER) gabapentin 300 mg capsule 300 mg PO BID sertraline 25 mg tablet 25 mg PO HS memantine 10 mg tablet 10 mg PO BID cholecalciferol (vitamin D3) [Vitamin D3] 25 mcg (1,000 unit) Tablet,Chewable 25 mcg PO QAM Discontinued diltiazem HCl 120 mg capsule,extended release 24 hr 120 mg PO BID Discharge Orders: Discharge Order (Routine); Ordered 02/28/23 Ordered By: Jhon Cox Admission Data Admit Date/Time: 02/22/23 14:24 Attending Provider: Jhon Cox Admit Provider: Ricky Mohan Primary Care Provider: Summer Mckeon Other Providers: Ricky Mohan; Maykel Rodríguez; mAinta Guaman; Patel Tinajero
== END 2023-02-28 15:55 | DRG 309 ==
LOC: ED 11:16 → SUATTDRO 14:24 → EDINP 14:24 → 4W 18:19